=== PATIENT | female | born 1955 | race Caucasian/White ===

== ENCOUNTER 2018-09-07 10:22 | Emergency (ER) | payer OTHER ==
--- NOTE | 2018-09-07 11:10 | ED ---
Back Pain - HPI Summary HPI Summary: This patient is a 62 year old female presenting to [facility] accompanied by her son with a CC of intermittent right sided lower back pain that began last week. She rates the pain sharp 10/10 in severity and states it radiates down the front of her leg and in to her hahn. She saw her PCP on 09-05-18 for this and was given a muscle relaxer but it began making her feel ill because it was interacting with her Parkinsons medications. When she took the flexeril it caused her to vomit. She has had had kidney stones in the past but states it does not feel similar to prior stones. She denies trauma. She denies fever, chills, CP, SOB, and any incontinence. - History of Current Complaint Chief Complaint: EDBackInjurySpin Stated Complaint: PAIN IN RIGHT LEG Time Seen by Provider: 09/07/18 10:44 Hx Obtained From: Patient Onset/Duration: Lasting Weeks, Still Present Onset/Duration: Started Weeks Ago, Still Present Timing: Constant Back Pain Location: Radiates To Severity Initially: Severe Severity Currently: Severe Pain Intensity: 10 Pain Scale Used: 0-10 Numeric Associated Signs And Symptoms: Positive: Negative - chills. Negative: Fever, Bladder Incontinence, Bowel Incontinence - Allergies/Home Medications Allergies/Adverse Reactions: Allergies Allergy/AdvReac Type Severity Reaction Status Date / Time No Known Allergies Allergy Verified 09/07/18 10:34 PMH/Surg Hx/FS Hx/Imm Hx Endocrine/Hematology History: Denies: Hx Bone Marrow Disease, Hx Diabetes Cardiovascular History: Reports: Hx Hypertension Sensory History: Reports: Hx Contacts or Glasses Opthamlomology History: Reports: Hx Contacts or Glasses Neurological History: Reports: Other Neuro Impairments/Disorders - Parkinson's Disease - Cancer History Cancer Type, 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 Hx Chemotherapy: No Hx Radiation Therapy: No - Surgical History Surgery Procedure, Year, and Place: skin cancer face Infectious Disease History: No Infectious Disease History: Denies: Hx Clostridium Difficile, Hx Hepatitis, Hx Human Immunodeficiency Virus (HIV), Hx of Known/Suspected MRSA, Hx Shingles, Hx Tuberculosis, Hx Known/ Suspected VRE, Hx Known/Suspected VRSA, History Other Infectious Disease, Traveled Outside the [place] in Last 30 Days - Family History Known Family History: Positive: Other - Breast cancer, Non-Contributory - Social History Alcohol Use: Rare Substance Use Type: Reports: None Hx Tobacco Use: No Smoking Status (MU): Never Smoked Tobacco Review of Systems Negative: Fever, Chills Negative: Chest Pain Negative: Shortness Of Breath Gastrointestinal: Negative - incontinence. Positive: Vomiting - due to medications Genitourinary: Negative - incontinence. Musculoskeletal: Other - right sided lower back pain All Other Systems Reviewed And Are Negative: Yes Physical Exam - Summary Physical Exam Summary: GENERAL: Patient is a well-developed and nourished F who is lying comfortable in the stretcher. Patient is not in any acute respiratory distress. HEAD AND FACE: Normocephalic EYES: PERRLA, EOMI x 2. EARS: Hearing grossly intact. MOUTH: Oropharynx within normal limits. NECK: Supple, trachea is midline, no adenopathy, no JVD, no carotid bruit. CHEST: Symmetric, no tenderness at palpation LUNGS: Clear to auscultation bilaterally. No wheezing or crackles. CVS: Regular rate and rhythm, S1 and S2 present, no murmurs or gallops appreciated. ABDOMEN: Soft, non-tender. Bowel sounds are normal. No abdominal abnormal pulsations. Back: the pain is not reproducible with palpation EXTREMITIES: Full ROM in all major joints, no edema, no cyanosis or clubbing. Straight leg raise on the right is negative NEURO: Alert and oriented x 3. No acute neurological deficits. Speech is normal and follows commands. SKIN: Dry and warm Triage Information Reviewed: Yes Vital Signs On Initial Exam: Initial Vitals Temp Pulse Resp BP Pulse Ox 98.6 F 73 16 160/95 96 09/07/18 10:29 09/07/18 10:29 09/07/18 10:29 09/07/18 10:29 09/07/18 10:29 Vital Signs Reviewed: Yes Diagnostics - Vital Signs Vital Signs Temp Pulse Resp BP Pulse Ox 09/07/18 10:29 98.6 F 73 16 160/95 96 - Laboratory Lab Statement: Any lab studies that have been ordered have been reviewed, and results considered in the medical decision making process. - CT CT ABD/Pelvis CT Interpretation Completed By: Radiologist Summary of CT Findings: 1. CHOLELITHIASIS. 2. EXTENSIVE DIVERTICULOSIS. 3. SCOLIOSIS. 4. OSTEOPENIA. 5. DEGENERATIVE DISC DISEASE AND OSTEOARTHRITIS DESCRIBED ABOVE. ED physician has reviewed this report. CT L spine CT Interpretation Completed By: Radiologist Summary of CT Findings: 1. CHOLELITHIASIS. 2. EXTENSIVE DIVERTICULOSIS. 3. SCOLIOSIS. 4. OSTEOPENIA. 5. DEGENERATIVE DISC DISEASE AND OSTEOARTHRITIS DESCRIBED ABOVE. ED physician has reviewed this report. Back Pain Course/Dx - Course Assessment/Plan: This patient is a 62 year old female presenting to [facility] accompanied by her son with a CC of intermittent right sided lower back pain that began last week. CT L Spine reveals, per radiology, 1. CHOLELITHIASIS. 2. EXTENSIVE DIVERTICULOSIS. 3. SCOLIOSIS. 4. OSTEOPENIA. 5. DEGENERATIVE DISC DISEASE AND OSTEOARTHRITIS DESCRIBED ABOVE. CT ABD/Pelvis reveals, per radiology, 1. CHOLELITHIASIS. 2. EXTENSIVE DIVERTICULOSIS. 3. SCOLIOSIS. 4. OSTEOPENIA. 5. DEGENERATIVE DISC DISEASE AND OSTEOARTHRITIS DESCRIBED ABOVE. The patient was given decadron and toradol, pt improved with these medications. UA was negative for UTI. I discussed results with patient and she reports feeling better. She is hemodynamically stable and safe for discharge. Strict return precautions given and she will otherwise follow up with her PCP. Pt was also given an ortho f/u. - Diagnoses Provider Diagnoses: DDD (degenerative disc disease), Lumbar radiculopathy Discharge - Sign-Out/Discharge Documenting (check all that apply): Patient Departure - d/c Patient Received Moderate/Deep Sedation with Procedure: No - Discharge Plan Condition: Stable Disposition: HOME Prescriptions: Diazepam TAB(*) [Valium TAB(*)] 2.5 mg PO Q6H PRN #10 tab MDD 4 doses PRN Reason: Spasms Ibuprofen 600 mg PO TID #24 tablet Patient Education Materials: Lumbar Radiculopathy (ED) Referrals: Julia Shen NP [Primary Care Provider] - Dayton Tavarez MD [Medical Doctor] - 2 Weeks Additional Instructions: Follow up with your primary care physician in 1-3 days. RETURN TO THE EMERGENCY DEPARTMENT FOR CHANGING OR WORSENING SYMPTOMS. - Billing Disposition and Condition Condition: STABLE Disposition: Home - Attestation Statements Document Initiated by Scribe: Yes Documenting Scribe: Emerson Vu Provider For Whom Scribe is Documenting (Include Credential): Dionte Mullins MD Scribe Attestation: Emerson Basurto , scribed for Dionte Mullins MD on 09/08/18 at 1756. Scribe Documentation Reviewed: Yes Provider Attestation: The documentation as recorded by the scribe, Emerson Vu accurately reflects the service I personally performed and the decisions made by me, Dionte Mullins MD Status of Scribe Document: Viewed
--- OUTSIDE RECORDS SUMMARY | 2018-09-07 11:24 | XMS REPORT | Continuity of Care Document ---
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 [place] [id number] Effective: 2017 Policy Number: Juan West [id number] Medicaid PayID: [id number] [address] [place] [id number] Advance Directives Description No Information Available Problems Date Description Provider Status Onset: 07/26/2014 Secondary parkinsonism ZHANG Chavira Active Onset: 07/26/2014 Essential hypertension ZHANG Chavira Active Family History Date Family Member(s) Problem(s) Comments : (age Father due to Colon 62 Years) Cancer : (age Mother due to 92 Years) Cancer, Pancreatic : (age First Brother due to 60 Years) Cancer, Liver : (age Second Brother due to complications 50 Years) Diabetes Third Brother Cancer, Prostate First Sister 70 age 78 with breast/bone cancer First Sister Cancer, Bone First Sister Cancer, Breast Second Sister Asthma Second Sister 71 Second Sister due to () Septicemia Paternal Grandfather unknown Paternal Grandmother unknown Maternal Grandfather unkonwn Maternal Grandmother unknown Social History Type Date Description Comments Sex Unknown Marital Status Lives With patient lives alone Diet Healthy, Well Balanced 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 Exercise Type/Frequency Bicycling Uses bike at home 30 min a day Allergies, Adverse Reactions, Alerts Description No Known Drug Allergies Medications Medication Date Status Form Strength Qnty SIG Indications Ordering Provider Atenolol 06/02/ Active Tablets 25mg 90tabs take one I10 Sil 2008 tablet by Gordy [employer]IMMER mouth every day Lindsay-C 05/31/ Active Tablets 500mg 1 PO qd Anusha 2007 Arnulfo Miranda, F.N.P.C. Sinemet / Active Tablets 25-100mg 1 and 07/23 Unknown 0000 po tid Metoprolol 02/18/ Hx Tablets ER 25mg 30tabs 1 by mouth Chika Succinate ER 2017 - 24HR every day Frankie 05/27/ for [employer] 2018 shortage of atenolol Hydroxyzine HCL 08/08/ Hx Tablets 10mg 45tabs 1 -3 tablet Chika 2017 - by mouth 4 Frankie, 05/27/ times a day [employer] 2018 as needed for anxiety Cipro 09/19/ Hx Tablets 500mg 10tabs one twice a N39.0 Chika 2015 - day x 5 Frankie, 08/08/ days [employer]-C 2017 [facility] 06/27/ Hx cbc,cmp,TSH Shawclementine 2012 - , lipids Yue Mix, 07/26/ panel [employer] 2015 Citalopram 03/27/ Hx Tablets 10mg 30tabs / po 781.8 Shawnti Hydrobromide 2010 - daily for Yue Mix, 07/26/ adjustment [employer]-C 2014 reaction Coenzyme Q10 06/21/ Hx Capsules 50mg 1 po qd Anusha 2008 - . 05/27/ Ruben, 2017 F.N.P.C. Bittinger-3 06/21/ Hx Capsules 1000mg 1 po qd Anusha 2008 - . 03/27/ Ruben, 2010 F.N.P.C. Multivitamins 06/21/ Hx Tablets 1 po qd Anusha 2008 - A. 05/27/ Ruben, 2017 F.N.P.C. Paxil 04/04/ Hx Tablets 20mg 30tabs 1 po qd 300.00 Shawclementine 2008 - R. Dominguez, 06/19/ [employer] 2010 Zoloft 02/14/ Hx Tablets 50mg 30tabs 1 po qd 300.02 Anusha 2008 - A. 04/04/ Ruben, 2008 F.N.P.C. 300.00 Meclizine 01/13/2009 - Hx Tablets 12.5mg 30tabs 1-2 tabs up 386.10 Anusha A. HCL 07/03/2010 to tid for britt Miranda F.N.P.C. Nasonex 12/29/2008 - Hx Suspension 50mcg/Act 1units two sprays in 381.81 Anusha A. 07/07/2013 each nares Ruben, once daily F.N.P.C. Zoloft 12/20/2008 - Hx Tablets 25mg 30tabs 1 po daily 300.02 Shawnti R. 02/14/2009 for Dominguez, adjustment [employer] reaction 300.00 Medicaly Able To Work 06/16/2007 - Hx no evidence V70.0 Moeclementine R. 09/26/2007 of infectious Storm, disease or [employer] disability that would affect work duties Multi-Vit 05/13/2006 - Hx Tablets 0ta 1 PO qd Anusha A. 03/27/2011 bs Ruben F.N.P.C. Vitamin C 05/13/2006 - Hx Capsules 1,000 po daily Anusha A. 05/31/2008 mg Ruben F.N.P.C. Fish Oil 05/13/2006 - Hx 1 PO qd Anusha A. 03/27/2011 Ruben F.N.P.C. Lo/Ovral 28 Day 02/28/2005 - Hx Tablets 0.03m 2PK use 2 tabs qd Chika 05/13/2006 g;0.3 S Soboroff, mg M.D. Medroxyprogesterone 02/05/2005 - Hx Tablets 10mg 30t use 1 tab q2h Chika 05/13/2006 abs until maik Winkler M.D. stops, then take 1 tab qd x 14 days Amoxicillin 10/28/2003 - Hx Capsules 875mg 28c 1 po bid 478.9 Anusha A. 11/02/2003 aps Jackie MirandaN.P.CYing Glucosamine-Chondroitin - Hx Capsules 500-4 Two In The Am Unknown 07/26/2014 00 Medications Administered in Office Medication Date Status Form Strength Qnty SIG Indications Ordering Provider TB,Intradermal Administered Injection Chika (PPD, [place]) 017 Frankie, [employer] TB,Intradermal Administered Injection Chika (PPD, [place]) 016 Frankie, [employer]ER-C TB,Intradermal Administered Injection Chika (PPD, [place]) 015 Rfankie, [employer]ADER-C TB,Intradermal Administered Injection Shawnti R. (PPD, [place]) 013 Storm, [employer]ER-C TB,Intradermal Administered Injection Shawnti R. (PPD, [place]) 012 Storm, [employer]ER-C TB,Intradermal Administered Injection Shawnti R. (PPD, [place]) 011 Storm, [employer]ER-C TB,Intradermal Administered Injection Juliana (PPD, [place]) 010 Saavedra, [employer] TRIMMER TB,Intradermal Administered Injection Anusha A. (PPD, [place]) 009 Ruben, F.N.P.C. TB,Intradermal Administered Injection Anusha A. (PPD, [place]) 008 Ruben, F.N.P.C. TB,Intradermal Administered Injection Vitaly Lewis, (PPD, [place]) 007 Brigitte.D. TB,Intradermal Administered Injection Anusha A. (PPD, [place]) 006 Ruben, F.N.P.C. TB,Intradermal Administered Injection Chika (PPD, [place]) 004 Marleen Winkler Immunizations CPT Code Status Date Vaccine Lot # [id number] Given 07/26/2014 Tdap (Adacel) [id number] Vital Signs Date Vital Result Comment 08/11/2018 8:00am Weight 154.00 lb Weight 69.854 kg BP Systolic 130 mmHg BP Diastolic 74 mmHg Heart Rate 80 /min Body Temperature 98.3 F Respiratory Rate 16 /min Height 64 inches 5'4" BMI (Body Mass Index) 26.4 kg/m2 O2 % BldC Oximetry 97 % 05/27/2018 3:32pm Weight 159.00 lb Weight 72.122 kg BP Systolic 130 mmHg BP Diastolic 90 mmHg Heart Rate 81 /min Body Temperature 98.9 F Respiratory Rate 16 /min O2 % BldC Oximetry 96 % 09/23/2017 8:02am Weight 150.00 lb Weight 68.040 kg BP Systolic 140 mmHg BP Diastolic 78 mmHg Heart Rate 72 /min Body Temperature 98.0 F Respiratory Rate 16 /min O2 % BldC Oximetry 98 % 08/08/2017 8:06am Weight 150.00 lb Weight 68.040 kg BP Systolic 142 mmHg BP Diastolic 88 mmHg Heart Rate 72 /min Body Temperature 98.0 F Respiratory Rate 16 /min Height 64 inches 5'4" BMI (Body Mass Index) 25.7 kg/m2 O2 % BldC Oximetry 98 % 04/02/2017 9:09am Weight 154.00 lb Weight 69.854 kg BP Systolic 124 mmHg BP Diastolic 80 mmHg BP Systolic Recheck 142 mmHg BP Diastolic Recheck 88 mmHg Heart Rate 72 /min Body Temperature 98.7 F Respiratory Rate 16 /min Height 63.5 inches 5'3.50" BMI (Body Mass Index) 26.8 kg/m2 08/08/2016 8:09am Weight 152.00 lb Weight 68.947 kg BP Systolic 147 mmHg BP Diastolic 100 mmHg BP Systolic Recheck 142 mmHg BP Diastolic Recheck 92 mmHg Heart Rate 64 /min 09/20/2015 9:35am Weight 156.00 lb Weight 70.762 kg BP Systolic 176 mmHg BP Diastolic 104 mmHg Heart Rate 84 /min Body Temperature 100.0 F 08/03/2015 8:21am Weight 155.00 lb Weight 70.308 kg BP Systolic 150 mmHg BP Diastolic 90 mmHg Heart Rate 68 /min Height 63.5 inches 5'3.50" BMI (Body Mass Index) 27.0 kg/m2 08/17/2014 8:52am Weight 158.00 lb Weight 71.669 kg BP Systolic 162 mmHg BP Diastolic 84 mmHg Heart Rate 84 /min Height 64 inches 5'4" BMI (Body Mass Index) 27.1 kg/m2 07/26/2014 7:56am Weight 163.00 lb Weight 73.937 kg BP Systolic 148 mmHg BP Diastolic 100 mmHg Heart Rate 76 /min Height 64 inches 5'4" BMI (Body Mass Index) 28.0 kg/m2 07/07/2013 3:05pm Weight 147.00 lb Weight 66.679 kg BP Systolic 148 mmHg BP Diastolic 84 mmHg Heart Rate 80 /min Height 63.5 inches 5'3.50" BMI (Body Mass Index) 25.6 kg/m2 06/27/2012 1:19pm Weight 139.00 lb Weight 63.050 kg BP Systolic 130 mmHg BP Diastolic 100 mmHg Heart Rate 68 /min Height 63.5 inches 5'3.50" BMI (Body Mass Index) 24.2 kg/m2 06/19/2011 1:33pm Weight 152.00 lb Weight 68.947 kg BP Systolic 160 mmHg BP Diastolic 104 mmHg Heart Rate 82 /min Height 63.5 inches 5'3.50" BMI (Body Mass Index) 26.5 kg/m2 03/27/2011 3:10pm Weight 150.00 lb Weight 68.040 kg BP Systolic 150 mmHg BP Diastolic 100 mmHg Heart Rate 72 /min Body Temperature 99.5 F 07/03/2010 8:11am Weight 156.00 lb Weight 70.762 kg BP Systolic 168 mmHg BP Diastolic 120 mmHg Heart Rate 76 /min Height 64 inches 5'4" BMI (Body Mass Index) 26.8 kg/m2 06/21/2009 1:00pm Weight 141.00 lb Weight 63.958 kg BP Systolic 160 mmHg BP Diastolic 100 mmHg Heart Rate 72 /min Height 63.25 inches 5'3.25" BMI (Body Mass Index) 24.8 kg/m2 04/04/2009 2:27pm Weight 137.00 lb Weight 62.143 kg BP Systolic 144 mmHg BP Diastolic 102 mmHg Heart Rate 76 /min 02/14/2009 10:20am Weight 134.00 lb Weight 60.782 kg BP Systolic 180 mmHg BP Diastolic 92 mmHg Heart Rate 68 /min 01/13/2009 10:29am Weight 134.00 lb Weight 60.782 kg BP Systolic 200 mmHg BP Diastolic 100 mmHg Heart Rate 80 /min Body Temperature 99.0 F 12/29/2008 11:36am Weight 132.00 lb Weight 59.875 kg BP Systolic 170 mmHg BP Diastolic 100 mmHg Heart Rate 80 /min 12/20/2008 2:34pm Weight 133.00 lb Weight 60.329 kg BP Systolic 178 mmHg BP Diastolic 118 mmHg Heart Rate 84 /min Body Temperature 97.9 F 10/22/2008 3:13pm Weight 136.00 lb Weight 61.690 kg BP Systolic 178 mmHg BP Diastolic 102 mmHg Heart Rate 76 /min 05/31/2008 8:04am Weight 137.00 lb Weight 62.143 kg BP Systolic 174 mmHg BP Diastolic 102 mmHg Heart Rate 88 /min Height 63.75 inches 5'3.75" BMI (Body Mass Index) 23.7 kg/m2 09/15/2007 11:32am Weight 148.00 lb Weight 67.133 kg BP Systolic 182 mmHg BP Diastolic 110 mmHg Heart Rate 70 /min Body Temperature 98.8 F Height 64 inches 5'4" BMI (Body Mass Index) 25.4 kg/m2 06/16/2007 8:00am Weight 152.00 lb Weight 68.947 kg BP Systolic 186 mmHg BP Diastolic 94 mmHg Heart Rate 76 /min Height 64 inches 5'4" BMI (Body Mass Index) 26.1 kg/m2 05/13/2006 8:20am Weight 156.00 lb Weight 70.762 kg BP Systolic 160 mmHg BP Diastolic 80 mmHg Height 64 inches 5'4" BMI (Body Mass Index) 26.8 kg/m2 04/03/2005 3:25pm Weight 142.00 lb Weight 64.411 kg BP Systolic 170 mmHg BP Diastolic 90 mmHg Heart Rate 80 /min Body Temperature 99.6 F Height 64 inches 5'4" BMI (Body Mass Index) 24.4 kg/m2 03/21/2005 10:53am Weight 140.00 lb Weight 63.504 kg BP Systolic 138 mmHg BP Diastolic 80 mmHg Body Temperature 98.0 F Height 64 inches 5'4" BMI (Body Mass Index) 24.0 kg/m2 03/14/2005 10:54am Weight 142.00 lb Weight 64.411 kg BP Systolic 120 mmHg BP Diastolic 80 mmHg Heart Rate 80 /min Height 64 inches 5'4" BMI (Body Mass Index) 24.4 kg/m2 02/28/2005 11:05am Weight 142.00 lb Weight 64.411 kg BP Systolic 140 mmHg BP Diastolic 86 mmHg Body Temperature 98.8 F Height 64 inches 5'4" BMI (Body Mass Index) 24.4 kg/m2 02/05/2005 11:46am Weight 142.00 lb Weight 64.411 kg BP Systolic 100 mmHg BP Diastolic 60 mmHg Heart Rate 80 /min Height 64 inches 5'4" BMI (Body Mass Index) 24.4 kg/m2 04/12/2004 8:23am Weight 144.00 lb Weight 65.318 kg BP Systolic 175 mmHg BP Diastolic 85 mmHg Heart Rate 69 /min Respiratory Rate 18 /min Height 64 inches 5'4" BMI (Body Mass Index) 24.7 kg/m2 10/28/2003 2:22pm Weight 145.00 lb Weight 65.772 kg BP Systolic 162 mmHg BP Diastolic 100 mmHg Body Temperature 97.9 F Respiratory Rate 18 /min 04/06/2003 2:09pm Weight 143.00 lb Weight 64.865 kg BP Systolic 160 mmHg BP Diastolic 112 mmHg 12/10/2001 11:17am Weight 137.00 lb BP Systolic 130 mmHg BP Diastolic 80 mmHg Heart Rate 64 /min Body Temperature 99.3 F 11/20/2001 3:46pm Weight 137.00 lb BP Systolic 130 mmHg BP Diastolic 74 mmHg Heart Rate 80 /min Respiratory Rate 18 /min Results Test Date Facility Test Result H/L Range Note Laboratory test 09/23/2017 [facility] Cytology SEE RESULT 1 finding [phone] BELOW Laboratory test 09/09/2017 [facility] Hemoglobin A1c 5.3 % N 4.0-5.6 2 finding [phone] (Glyco HGB) Hepatitis C Antibody Nonreactive Nonreactive 3 CBC Auto Diff 09/09/2017 [facility] White Blood 5.8 10^3/uL N 3.5-10.8 [phone] Count Red Blood Count 4.42 10^6/uL N 4.0-5.4 Hemoglobin 13.6 g/dL N 12.0-16.0 Hematocrit 41 % N 35-47 Mean Corpuscular Volume 92 fL N 80-97 Mean Corpuscular Hemoglobin 31 pg N 27-31 Mean Corpuscular HGB Conc 34 g/dL N 31-36 Red Cell Distribution Width 13 % N 10.5-15 Platelet Count 301 10^3/uL N 150-450 Mean Platelet Volume 8 um3 N 7.4-10.4 Abs Neutrophils 3.7 10^3/uL N 1.5-7.7 Abs Lymphocytes 1.4 10^3/uL N 1.0-4.8 Abs Monocytes 0.5 10^3/uL N 0-0.8 Abs Eosinophils 0.2 10^3/uL N 0-0.6 Abs Basophils 0.1 10^3/uL N 0-0.2 Abs Nucleated RBC 0 10^3/uL Granulocyte % 64.2 % N 38-83 Lymphocyte % 23.8 % Low 25-47 Monocyte % 8.2 % N 1-9 Eosinophil % 2.7 % N 0-6 Basophil % 1.1 % N 0-2 Nucleated Red Blood Cells % 0.1 Comp Metabolic Panel 09/09/2017 [facility] Sodium 141 mmol/L N 133-145 [phone] Potassium 4.5 mmol/L N 3.5-5.0 Chloride 106 mmol/L N 101-111 Co2 Carbon Dioxide 30 mmol/L N 22-32 Anion Gap 5 mmol/L N 2-11 Glucose 97 mg/dL N 70-100 Blood Urea Nitrogen 13 mg/dL N 6-24 Creatinine 0.67 mg/dL N 0.51-0.95 BUN/Creatinine Ratio 19.4 N 8-20 Calcium 9.2 mg/dL N 8.6-10.3 Total Protein 6.4 g/dL N 6.4-8.9 Albumin 3.7 g/dL N 3.2-5.2 Globulin 2.7 g/dL N 2-4 Albumin/Globulin Ratio 1.4 N 1-3 Total Bilirubin 0.40 mg/dL N 0.2-1.0 Alkaline Phosphatase 66 U/L N 34-104 Alt 3 U/L Low 7-52 Ast 11 U/L Low 13-39 Egfr Non- 88.9 >60 Egfr 114.3 >60 4 Lipid Profile 09/09/2017 [facility] Triglycerides 75 mg/dL 5 (Trig/Chol/HDL) [phone] Cholesterol 157 mg/dL 6 HDL Cholesterol 53.4 mg/dL 7 LDL Cholesterol 89 mg/dL 8 Comp Metabolic Panel 03/12/2016 [facility] Sodium 140 mmol/L N 133-145 [phone] Potassium 3.8 mmol/L N 3.5-5.0 Chloride 105 mmol/L N 101-111 Co2 Carbon Dioxide 26 mmol/L N 22-32 Anion Gap 9 mmol/L N 2-11 Glucose 114 mg/dL High 70-100 Blood Urea Nitrogen 12 mg/dL N 6-24 Creatinine 0.70 mg/dL N 0.51-0.95 BUN/Creatinine Ratio 17.1 N 8-20 Calcium 9.3 mg/dL N 8.6-10.3 Total Protein 7.0 g/dL N 6.4-8.9 Albumin 4.0 g/dL N 3.2-5.2 Globulin 3.0 g/dL N 2-4 Albumin/Globulin Ratio 1.3 N 1-3 Total Bilirubin 0.30 mg/dL N 0.2-1.0 Alkaline Phosphatase 79 U/L N 34-104 Alt 10 U/L N 7-52 Ast 15 U/L N 13-39 Egfr Non- 84.8 N >60 Egfr 109.0 N >60 9 Laboratory test 03/12/2016 [facility] Magnesium 1.9 mg/dL N 1.9-2.7 finding [phone] Troponin-I (TnI) 0.00 ng/mL N <0.03 10 TSH (Thyroid Stimulating Horm) 1.44 mcIU/mL N 0.34-5.60 C Reactive Protein 1.17 mg/L N < 5.00 11 Inr/Protime 03/12/2016 [facility] Inr 0.92 N 0.89- 1.11 [phone] Laboratory test 03/12/2016 [facility] Partial 28.9 seconds N 26.0-36.3 finding [phone] Thrombo Time PTT Urinalysis 03/12/2016 [facility] Urine Color Colorless N Profile [phone] Urine Appearance Clear N Urine Specific Dell 1.002 Low 1.010-1.030 Urine pH 7.0 N 5-9 Urine Urobilinogen Negative N Negative Urine Ketones Negative N Negative Urine Protein Negative N Negative Urine Leukocytes Negative N Negative Urine Blood Negative N Negative Urine Nitrite Negative N Negative Urine Bilirubin Negative N Negative Urine Glucose Negative N Negative Laboratory test 09/20/2015 [facility] Urine Culture And SEE RESULT 12 finding [phone] Sensitivities BELOW Urine DIP 09/20/2015 In House Lab Leukocytes ++ Neg (607)- - Urine Nitrites neg Neg Urobilinogen norm Norm Total Protein, Urine trace Neg Urine pH 5 5-6 Urine Blood 250 High Neg Specific Dell 1.02 1.01-1.02 Urine Ketones neg Neg Urine Bilirubin neg Neg Urine Glucose neg Norm CBC Auto Diff 08/03/2015 [facility] White Blood 6.2 10^3/uL N 3.5-10.8 [phone] Count Red Blood Count 4.70 10^6/uL N 4.0-5.4 Hemoglobin 14.3 g/dL N 12.0-16.0 Hematocrit 44 % N 35-47 Mean Corpuscular Volume 93 fL N 80-97 Mean Corpuscular Hemoglobin 30 pg N 27-31 Mean Corpuscular HGB Conc 33 g/dL N 31-36 Red Cell Distribution Width 13 % N 10.5-15 Platelet Count 319 10^3/uL N 150-450 Mean Platelet Volume 8 um3 N 7.4-10.4 Abs Neutrophils 3.5 10^3/uL N 1.5-7.7 Abs Lymphocytes 1.7 10^3/uL N 1.0-4.8 Abs Monocytes 0.6 10^3/uL N 0-0.8 Abs Eosinophils 0.3 10^3/uL N 0-0.6 Abs Basophils 0.1 10^3/uL N 0-0.2 Abs Nucleated RBC 0 10^3/uL N Granulocyte % 56.6 % N 38-83 Lymphocyte % 27.6 % N 25-47 Monocyte % 10.2 % High 1-9 Eosinophil % 4.6 % N 0-6 Basophil % 1.0 % N 0-2 Nucleated Red Blood Cells % 0 N Comp Metabolic Panel 08/03/2015 [facility] Sodium 140 mmol/L N 133-145 [phone] Potassium 4.0 mmol/L N 3.5-5.0 Chloride 106 mmol/L N 101-111 Co2 Carbon Dioxide 27 mmol/L N 22-32 Anion Gap 7 mmol/L N 2-11 Glucose 95 mg/dL N 70-100 Blood Urea Nitrogen 17 mg/dL N 6-24 Creatinine 0.66 mg/dL N 0.51-0.95 BUN/Creatinine Ratio 25.8 High 8-20 Calcium 9.5 mg/dL N 8.6-10.3 Total Protein 6.9 g/dL N 6.4-8.9 Albumin 4.3 g/dL N 3.2-5.2 Globulin 2.6 g/dL N 2-4 Albumin/Globulin Ratio 1.7 N 1-3 Total Bilirubin 0.30 mg/dL N 0.2-1.0 Alkaline Phosphatase 78 U/L N 34-104 Alt 7 U/L N 7-52 Ast 16 U/L N 13-39 Egfr Non- 91.0 N >60 Egfr 117.1 N >60 13 Lipid Profile 08/03/2015 [facility] Triglycerides 78 mg/dL N 14 (Trig/Chol/HDL) [phone] Cholesterol 155 mg/dL N 15 HDL Cholesterol 58.3 mg/dL N 16 LDL Cholesterol 81 mg/dL N 17 Urine DIP 08/03/2015 In House Lab Leukocytes neg Neg (607)- - Urine Nitrites neg Neg Urobilinogen norm Norm Total Protein, Urine + Neg Urine pH 5.0 5-6 Urine Blood neg Neg Specific Dell 1.025 High 1.01-1.02 Urine Ketones neg Neg Urine Bilirubin neg Neg Urine Glucose norm Norm Laboratory test 08/17/2014 [facility] Cytology RUN DATE: 18 [phone] 08/18/ <SEE NOTE> HPV Rna W/ Reflex Genotype Negative N Negative 19 CBC Auto Diff 08/17/2014 [facility] White Blood 7.0 10^3/uL N 4.8-10.8 [phone] Count Red Blood Count 4.67 10^6/uL N 4.0-5.4 Hemoglobin 14.5 g/dL N 12.0-16.0 Hematocrit 43 % N 35-47 Mean Corpuscular Volume 91 fL N 80-97 Mean Corpuscular Hemoglobin 31 pg N 27-31 Mean Corpuscular HGB Conc 34 g/dL N 31-36 Red Cell Distribution Width 12 % N 10.5-15 Platelet Count 291 10^3/uL N 150-450 Mean Platelet Volume 8 um3 N 7.4-10.4 Abs Neutrophils 5.0 10^3/uL N 1.5-7.7 Abs Lymphocytes 1.4 10^3/uL N 1.0-4.8 Abs Monocytes 0.4 10^3/uL N 0-0.8 Abs Eosinophils 0.1 10^3/uL N 0-0.6 Abs Basophils 0 10^3/uL N 0-0.2 Abs Nucleated RBC 0 10^3/uL N Granulocyte % 71.8 % N 38-83 Lymphocyte % 20.4 % Low 25-47 Monocyte % 6.2 % N 1-9 Eosinophil % 1.0 % N 0-6 Basophil % 0.6 % N 0-2 Nucleated Red Blood Cells % 0.1 N Comp Metabolic Panel 08/17/2014 [facility] Sodium 140 mmol/L N 133-145 [phone] Potassium 3.5 mmol/L N 3.5-5.0 Chloride 103 mmol/L N 101-111 Co2 Carbon Dioxide 28 mmol/L N 22-32 Anion Gap 9 mmol/L N 2-11 Glucose 99 mg/dL N 70-100 Blood Urea Nitrogen 10 mg/dL N 6-24 Creatinine 0.69 mg/dL N 0.51-0.95 BUN/Creatinine Ratio 14.5 N 8-20 Calcium 9.3 mg/dL N 8.6-10.3 Total Protein 7.0 g/dL N 6.4-8.9 Albumin 4.3 g/dL N 3.2-5.2 Globulin 2.7 g/dL N 2-4 Albumin/Globulin Ratio 1.6 N 1-3 Total Bilirubin 0.40 mg/dL N 0.2-1.0 Alkaline Phosphatase 80 U/L N 34-104 Alt 14 U/L N 7-52 Ast 13 U/L N 13-39 Egfr Non- 86.8 N >60 Egfr 111.6 N >60 20 Lipid Profile 08/17/2014 [facility] Triglycerides 80 mg/dL N 21 (Trig/Chol/HDL) [phone] Cholesterol 166 mg/dL N 22 HDL Cholesterol 53.3 mg/dL N 23 LDL Cholesterol 97 mg/dL N 24 Urine DIP 08/17/2014 In House Lab Specific Dell 1.020 1.01-1.02 (607)- - Urine pH 5 5-6 Leukocytes NEG Neg Urine Nitrites NEG Neg Total Protein, Urine NEG Neg Urine Glucose NORM Norm Urine Ketones ++ Neg Urobilinogen NORM Norm Urine Bilirubin NEG Neg Urine Blood NEG Neg Urine DIP 06/27/2012 In [place] [facility] Leukocytes NEG Neg (607)- - Urine Nitrites NEG Neg Urine pH 5 5-6 Total Protein, Urine NEG Neg Urine Glucose NORM Norm Urine Ketones NEG Neg Urobilinogen NORM Norm Urine Bilirubin NEG Neg Urine Blood NEG Neg Specific Dell N/A Low 1.01-1.02 Laboratory test 08/22/2011 [facility] Rubella Screen IMMUNE Immune finding [phone] Laboratory test 06/19/2011 [facility] Cytology ------ ----- 25 finding [phone] ----- <SEE NOTE> Urine DIP 07/03/2010 In [place] [facility] Leukocytes NEG Neg (607)- - Urine Nitrites NEG Neg Urine pH 5 5-6 Total Protein, Urine NEG Neg Urine Glucose NORM Norm Urine Ketones NEG Neg Urobilinogen NORM Norm Urine Bilirubin NEG Neg Urine Blood ABOUT 50 Neg Specific Dell N/A Low 1.01-1.02 Urine DIP 06/21/2009 In [place] [facility] Leukocytes NEG Neg (607)- - Urine Nitrites NEG Neg Urine pH 5 5-6 Total Protein, Urine TRACE Neg Urine Glucose NORM Norm Urine Ketones NEG Neg Urobilinogen NORM Norm Urine Bilirubin NEG Neg Urine Blood NEG Neg Specific Dell N/A Low 1.01-1.02 Urine DIP 05/31/2008 In [place] [facility] Leukocytes neg Neg (607)- - Urine Nitrites neg Neg Urine pH 5 5-6 Total Protein, Urine neg Neg Urine Glucose norm Norm Urine Ketones neg Neg Urobilinogen norm Norm Urine Bilirubin neg Neg Urine Blood neg Neg Specific Dell n/a Low 1.01-1.02 Laboratory test 05/31/2008 [facility] Cytology ------ 26 finding [phone] <SEE NOTE> Urine DIP 09/24/2007 In [place] [facility] Leukocytes + Neg (607)- - Urine Nitrites NEG Neg Urine pH 5 5-6 Total Protein, Urine NEG Neg Urine Glucose NORM Norm Urine Ketones ++ Neg Urobilinogen NORM Norm Urine Bilirubin NEG Neg Urine Blood NEG Neg Specific Dell N/A Low 1.01-1.02 Urine Culture And 09/16/2007 [facility] Urine Culture NG 27 Sensitivites [phone] Sensitivi Urine DIP 09/15/2007 In House Lab Leukocytes neg Neg (607)- - Urine Nitrites neg Neg Urine pH 5 5-6 Total Protein, Urine neg Neg Urine Glucose norm Norm Urine Ketones neg Neg Urobilinogen norm Norm Urine Bilirubin neg Neg Urine Blood about 250 Neg Specific Dell n/a Low 1.01-1.02 Laboratory test 05/13/2006 [facility] Cytology ------ 28 finding [phone] <SEE NOTE> Laboratory test 04/03/2005 [facility] Thin Layer Pap REC'D-SEE IMAGE finding [phone] W/Reflex To HPV For ASCUS Laboratory test 03/21/2005 [facility] ENDOMETRIAL BIOPSY finding (607)- - Report Laboratory test 03/21/2005 In [place] [facility] Hemoglobin 11.4 finding (607)- - Laboratory test 03/21/2005 [facility] Thin Layer Pap REC'D-UNSAT EVAL finding [phone] W/Reflex To HPV For ASCUS Laboratory test 02/28/2005 In [place] [facility] Hemoglobin 11.1 finding (607)- - Laboratory test 02/05/2005 In [place] [facility] Hemoglobin 12.5 finding (607)- - Laboratory test 04/06/2003 In [place] [facility] Hemoglobin 12.6 finding (607)- - Laboratory test 11/20/2001 In [place] [facility] Hemoglobin 11.9 finding (607)- - 1 SEE RESULT BELOW Name: REANNA WEST : [address]: Julia Shen NP Acct: [id number] Unit: [id number] AGE: 61 Location: [facility] [place] Re09/23/17 SEX: F Status: REG REF SPEC: [id number] BERNADETTE: 09/23/17 [facility] DR: Julia Shen SH[employer] FEATHER TRIMMER REQ: [id number] RECD: 09/23/17 STATUS: SOUT _ ORDERED: TP IMAGE ANAL, HPV/Thin Prep, HPV 16/18 GENE COMMENTS: [id number] Negative for Intraepithelial lesion or Malignancy A. Ectocervical/Endocervical Specimen Adequacy: Satisfactory of evaluation Transformation zone component cannot be definitely identified due to presence of atrophy or other hormonal changes Patient Information: HPV: High risk HPV RNA testing regardless of pap results. HPV 16/18 Genotype Reflex Actual Specimen Date: 09/23/17 LMP If Unknown: unknown Date of Last Specimen: 08/17/16 Date Time Test Result Flag (u) Normal Range 09/23/17 08 @ HPV RNA RFLX GE Negative Negative @ @ The high-risk HPV types detected by the assay include: 16, @ 18, 31, 33, 35, 39, 45, 51, 52, 56, 58, 59, 66, and 68. Signed (signature on file) CALOS Sharma(ASCP) 09/24 1300 This Pap test was evaluated with the assistance of the ThinPrep Test Imaging System. Due to cytologic findings at the track patrol microscope, comprehensive manual rescreening by a Boarding Kennel Or Cattery Operator may be required. The Pap Smear is a screening test designed to aid in the detection of premalignant and malignant conditions of the uterine cervix. It is not a diagnostic procedure and should not be used as the sole means of detecting cervical cancer. Both false- positive and false- negative reports do occur. Depending on your risk status, a Pap smear should be obtained and evaluated every 1-3 years. END OF REPORT DEPARTMENT OF PATHOLOGY, [address] [place] [address] Meng Alvares M.D. Director [facility] # [id number] 2 Therapeutic target for the treatment of diabetes mellitus patients is <7% HBA1C, and in selective patients <6.0%. Please refer to [place] [employer] diabetic care guidelines for further information. 3 FASTING [id number] 4 Because ethnic data is not always readily available, this report includes an eGFR for both -Americans and non- Americans. The National Kidney Disease Education Program (NKDEP) does not endorse the use of the MDRD equation for patients that are not between the ages of 18 and 70, are , have extremes of body size, muscle mass, or nutritional status, or are non- or non-. According to the National Kidney Foundation, irrespective of diagnosis, the stage of the disease is based on the level of kidney function: Stage Description GFR(mL/min/1.73 m(2)) 1 Kidney damage with normal or decreased GFR 90 2 Kidney damage with mild decrease in GFR 60-89 3 Moderate decrease in GFR 30-59 4 Severe decrease in GFR 15-29 5 Kidney failure <15 (or dialysis) 5 Desirable: <150 Borderline High: 150-199 High: 200-499 Very High: >500 6 Desirable: <200 Borderline High: 200-239 High: >239 7 Low: <40 Desirable: 40-60 High: >60 8 Desirable: <100 Near Optimal: 100-129 Borderline High: 130-159 High: 160-189 Very High: >189 9 Because ethnic data is not always readily available, this report includes an eGFR for both -Americans and non- Americans. The National Kidney Disease Education Program (NKDEP) does not endorse the use of the MDRD equation for patients that are not between the ages of 18 and 70, are , have extremes of body size, muscle mass, or nutritional status, or are non- or non-. According to the National Kidney Foundation, irrespective of diagnosis, the stage of the disease is based on the level of kidney function: Stage Description GFR(mL/min/1.73 m(2)) 1 Kidney damage with normal or decreased GFR 90 2 Kidney damage with mild decrease in GFR 60-89 3 Moderate decrease in GFR 30-59 4 Severe decrease in GFR 15-29 5 Kidney failure <15 (or dialysis) 10 Reference Range and Interpretation: TnI (ng/mL) Interpretation Less Than 0.03 ng/mL Not supportive of diagnosis of [place] 0.03 - 0.50 ng/mL Indeterminate: suggest serial studies if clinically indicated. Greater than 0.5 ng/mL Consistent with diagnosis of [place] 11 Acute inflammation: >10.00 12 SEE RESULT BELOW Name: REANNA WEST : [address]: Chika Leger NP Acct: [id number] Unit: [id number] AGE: 59 Location: [facility] [place] Re09/20/15 SEX: F Status: REG REF SPEC: [id number] BERNADETTE: 09/20/15-999 [facility] DR: Chika Leger NP REQ: [id number] RECD: 09/20/15 STATUS: COMP _ SOURCE: URINE SPDESC: ORDERED: Urine Culture Procedure Result Reported Site Urine Culture Final 09/22/15- 0802 ML Organism 1 ESCHERICHIA COLI [facility] Count >100,000 (Many) CFU/ML 1. ESCHERICHIA COLI [facility].I.[facility]. RX --------- ------ Ampicillin <=2 S Cefazolin <=4 S Cefepime <=1 S Ceftriaxone <=1 S Ciprofloxacin <=0.25 S Gentamicin <=1 S Levofloxacin <=0.12 S Meropenem <=0.25 S Nitrofurantoin <=16 S Tetracycline <=1 S Pipercillin/Tazobactam <=4 S Trimethoprim/Sulfamethoxazole <=20 S Amoxicillin/Clavulanic Acid <=2 S Aztreonam <=1 S Contact the Microbiology Department for any additional antibiotic reporting. * ML - [facility]) . END OF REPORT * ML=Testing performed at Main Lab DEPARTMENT OF PATHOLOGY, [address] [place] [address] Meng Alvares M.D. Director [facility] # [id number] 13 Because ethnic data is not always readily available, this report includes an eGFR for both -Americans and non- Americans. The National Kidney Disease Education Program (NKDEP) does not endorse the use of the MDRD equation for patients that are not between the ages of 18 and 70, are , have extremes of body size, muscle mass, or nutritional status, or are non- or non-. According to the National Kidney Foundation, irrespective of diagnosis, the stage of the disease is based on the level of kidney function: Stage Description GFR(mL/min/1.73 m(2)) 1 Kidney damage with normal or decreased GFR 90 2 Kidney damage with mild decrease in GFR 60-89 3 Moderate decrease in GFR 30-59 4 Severe decrease in GFR 15-29 5 Kidney failure <15 (or dialysis) 14 Desirable <150 Borderline high 150-199 High 200-499 Very High >500 15 Desirable <200 Borderline high 200-239 High >239 16 Low <40 Desirable: 40-60 High: >60 17 Desirable: <100 mg/dL Near Optimal: 100-129 mg/dL Borderline High: 130-159 mg/dL High: 160-189 mg/dL Very High: >189 mg/dL 18 RUN DATE: 08/18/14 [facility] LAB LIVE PAGE 1 RUN TIME: [address] [place] [id number] Specimen Inquiry Name: REANNA WEST : [address]: Chika Leger NP Acct: [id number] Unit: [id number] AGE: 58 Location: [facility] [place] Re08/17/14 SEX: F Status: REG REF SPEC: [id number] BERNADETTE: 08/17/[address]: Chika Leger NP REQ: [id number] RECD: 08/17/14-1255 STATUS: SOUT _ ORDERED: IMAGE ANALYSIS, HPV/Thin Prep, HPV 16/18 GENE FINAL DIAGNOSIS Negative for Intraepithelial lesion or Malignancy A. Ectocervical/Endocervical Specimen Adequacy: Satisfactory of evaluation Transformation zone component identified Patient Information: HPV: High risk HPV RNA testing regardless of pap results. HPV 16/18 Genotype for HPV pos Actual Specimen Date: 08/17/14 ?: N Post Menopausal?: Y Hysterectomy?: N Date Time Test Result Flag (u) Normal Range 08/17/14 0943 HPV RNA RFLX GE Negative Negative The high-risk HPV types detected by the assay include: 16, 18, 31, 33, 35, 39, 45, 51, 52, 56, 58, 59, 66, and 68. Signed (signature on file) CALOS Duff (ASCP) 08/18/14 1423 This Pap test was evaluated with the assistance of the [employer] Test Imaging System. Due to cytologic findings at the track patrol microscope, comprehensive manual rescreening by a Boarding Kennel Or Cattery Operator may be required. The Pap Smear is a screening test designed to aid in the detection of premalignant and malignant conditions of the uterine cervix. It is not a diagnostic procedure and should not be used as the sole means of detecting cervical cancer. Both false- positive and false- negative reports do occur. Depending on your risk status, a Pap smear should be obtained and evaluated every 1-3 years. END OF REPORT * ML=Testing performed at Main Lab DEPARTMENT OF PATHOLOGY, [address] [place] [address] Meng Alvares M.D. Director [facility] # [id number] 19 The high-risk HPV types detected by the assay include: 16, 18, 31, 33, 35, 39, 45, 51, 52, 56, 58, 59, 66, and 68. 20 Because ethnic data is not always readily available, this report includes an eGFR for both -Americans and non- Americans. The National Kidney Disease Education Program (NKDEP) does not endorse the use of the MDRD equation for patients that are not between the ages of 18 and 70, are , have extremes of body size, muscle mass, or nutritional status, or are non- or non-. According to the National Kidney Foundation, irrespective of diagnosis, the stage of the disease is based on the level of kidney function: Stage Description GFR(mL/min/1.73 m(2)) 1 Kidney damage with normal or decreased GFR 90 2 Kidney damage with mild decrease in GFR 60-89 3 Moderate decrease in GFR 30-59 4 Severe decrease in GFR 15-29 5 Kidney failure <15 (or dialysis) 21 Desirable <150 Borderline high 150-199 High 200-499 Very High >500 22 Desirable <200 Borderline high 200-239 High >239 23 Low <40 Desirable: 40-60 High: >60 24 Desirable <100 Near Optimal 100-129 Borderline high 130-159 High 160-189 Very High >189 25 ---- RUN DATE: 06/20/11 [facility] NMI LIVE PAGE 1 RUN TIME: 1234 Specimen Inquiry RUN USER: INTERFACE -- [id number] Status: REG REF Re06/19/11 Age/Sex: 55/F Unit#: [id number] Location: [facility].B. : [birth year] -- Specimen: [id number] SOUT Spec Date: 06/19/[address]: Noemy fam NP Spec Type: CYTOLOGY Received: 06/20/11-0832 Copies to: SOURCE ECTOCERVICAL/ENDOCERVICAL Thin Prep with Reflex HPV Test PATIENT INFORMATION ACTUAL COLLECTION DATE: 06/19/11 POST MENOPAUSAL? Yes DATE OF PRIOR SPECIMEN: 05/31/08 PATIENT HISTORY: Last menstrual period 5 yrs ago ADEQUACY OF SPECIMEN Satisfactory for evaluation * Transformation zone component identified * DIAGNOSIS NEGATIVE FOR INTRAEPITHELIAL LESION OR MALIGNANCY * This Pap test was evaluated with the assistance of the ThinPrep Pap Test Imaging System. The Pap Smear is a screening test designed to aid in the detection of premalign ant and malignant conditions of the uterine cervix. It is not a diagnostic procedure a nd should not be used as the sole means of detecting cervical cancer. Both false- positiv e and false-negative reports do occur. Depending on your risk status, a Pap smear christa uld be obtained and evaluated every one to three years. Initial evaluation performed by Yvon LYNNE(ASCP) 06/20/11 Final Interpretation electronically signed by: Yvon LYNNE CT(ASCP) 06/20/11 1234 -- -- DEPARTMENT OF PATHOLOGY, [address] [place] [address] [facility] Permit #[id number] Marleen Naik M.D. Aquatics Specialist noel -- 26 ---- RUN DATE: 06/01/08 [facility] NMI LIVE PAGE 1 RUN TIME: 1224 Specimen Inquiry RUN USER: INTERFACE -- Name: REANNA WEST Status: REG REF Re05/31/08 Age/Sex: 52/F Unit#: [id number] Location: [facility] : [birth year] -- Specimen: [id number] SOUDestinee Spec Date: 05/31/[address]: Anusha heard CNP Spec Type: CYTOLOGY Received: 06/01/08 Copies to: SOURCE ECTOCERVICAL/ENDOCERVICAL Thin Prep with Reflex HPV Test PATIENT INFORMATION ACTUAL COLLECTION DATE: 05/31/08 POST MENOPAUSAL? Yes ADEQUACY OF SPECIMEN Satisfactory for evaluation * Transformation zone component identified * DIAGNOSIS NEGATIVE FOR INTRAEPITHELIAL LESION OR MALIGNANCY * This Pap test was evaluated with the assistance of the ThinPrep Pap Test Imaging System. The Pap Smear is a screening test designed to aid in the detection of premalign ant and malignant conditions of the uterine cervix. It is not a diagnostic procedure a nd should not be used as the sole means of detecting cervical cancer. Both false- positive and false-negative reports do occur. Depending on your risk status, a Pap smear christa uld be obtained and evaluated every one to three years. Final Interpretation electronically signed by: Yvon LYNNE(ASCP) 06/01/08 1224 -- -- DEPARTMENT OF PATHOLOGY, [address] [place] [address] [facility] Permit #[id number] Meng Alvares M.D. Director of Laboratories -- 27 FINAL: NO GROWTH DAY 2 (<1,000 CFU/mL) 28 ---- RUN DATE: 05/16/06 [facility] NMI LIVE PAGE 1 RUN TIME: 5837 Specimen Inquiry RUN USER: INTERFACE [id number] REANNA WEST 50/F <REG REF 05/13> ([id number]) Anusha Syed NP. -- Specimen: [id number] MARLONDestinee Spec Date: 05/13/[address]: Anusha Miranda Spec Type: CYTOLOGY Received: 05/15/06-1106 Copies to: SOURCE ECTOCERVICAL/ENDOCERVICAL Thin Prep with Reflex HPV Test PATIENT INFORMATION ACTUAL COLLECTION DATE: 05/13/06 ? NO POST MENOPAUSAL? No HYSTERECTOMY? No PREVIOUS ABNORMAL PAP SMEARS No Last menstrual period - NOT GIVEN ADEQUACY OF SPECIMEN Satisfactory for evaluation * Transformation zone component identified * DIAGNOSIS NEGATIVE FOR INTRAEPITHELIAL LESION OR MALIGNANCY * The Pap Smear is a screening test designed to aid in the detection of premalign ant and malignant conditions of the uterine cervix. It is not a diagnostic procedure an d should not be used as the sole means of detecting cervical cancer. Both false-positive and false-negative reports do occur. Depending on your risk status, a Pap smear christa uld be obtained and evaluated every one to three years. Signed Electronically signed Yvon LYNNE(ASCP) 05/16/06 -- -- DEPARTMENT OF PATHOLOGY, [address] [place] [address] [facility] Permit #[id number] J Luis Acuna II, M.D. Director Marleen Naik irector -- Procedures Date Code Description Status 09/04/2016 [id number] Mammogram Completed 06/02/2008 28495 EKG, at Least 12 Leads w/Interpretation and Report Completed 03/21/2005 19224 Endometrial Biopsy Completed Encounters Type Date Location Provider Dx Diagnosis Office Visit 05/27/2018 Main Office Sil Kaminski NP I10 Essential ( primary) 3:30p hypertension Office Visit 09/23/2017 Main Office Julia Shen Z12.4 Encounter for 8:00a [employer]MER screening for malignant neoplasm of cervix Office Visit 08/08/2017 Main Office Julia Shen Z00.00 Encntr for general 8:00a [employer]MER adult medical exam w/o abnormal findings Z12.31 Encntr screen mammogram for malignant neoplasm of breast Z12.11 Encounter for screening for malignant neoplasm of colon I10 Essential (primary) hypertension Office Visit 04/02/2017 9:00a Main Office Chika Leger I10 Essential ( primary) [employer]AD[employer]-C hypertension Office Visit 08/08/2016 8:00a Main Office Zachery Chavira0 Essential ( primary) [employer]C hypertension Z11.1 Encounter for screening for respiratory tuberculosis Office Visit 09/20/2015 9:30a Main Office Chika Leger, N39.0 Urinary tract [employer]ER-C infection, site not specified Office Visit 08/03/2015 8:00a Main Office Chika Leger, Z00.00 Encntr for general [employer] LEADER-C adult medical exam w/o abnormal findings Z12.31 Encntr screen mammogram for malignant neoplasm of breast I10 Essential (primary) hypertension Z11.1 Encounter for screening for respiratory tuberculosis Office Visit 08/17/2014 9:00a Main Office Chika Leger, V72.31 Routine Data Migration Lead [employer]-C Examination 401.9 Hypertension Unspec 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 Office Visit 07/26/2014 8:00a Main Office Chika Leger V70.0 Examination General [employer]-C Medical Routine AT Health Care Facility 401.9 Hypertension Unspec 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 V76.10 Screening For Malignant Neoplasm Breast 173.91 Basal Cell Carcinoma Skin ,Site Unspecified V06.1 Aapuxoyoca-Krlqfmg-Xokugduq Combined (DTaP) V74.1 Screening Examination Pulmonary Tuberculosis Office Visit 07/07/2013 3:00p Main Office Noemy Turner V70.0 Examination General Storm, [employer]ER-C Medical Routine AT Health Care Facility Office Visit 06/27/2012 1:30p Main Office Noemy Turner V70.0 Examination General Storm, [employer]-C Medical Routine AT Health Care Facility 333.1 Tremor Essential & Other Forms V74.1 Screening Examination Pulmonary Tuberculosis Office Visit 06/19/2011 1:30p Main Office Noemy Turner V70.0 Examination General Storm, [employer]ER-C Medical Routine AT Health Care Facility 300.02 Anxiety Disorder Generalized 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 Unspec 401.9 Hypertension Unspec Office Visit 02/14/2009 10:15a Main Office Anusha AYing 401.9 Hypertension Unspec Ruben, F.N.P.C. 300.00 Anxiety State Unspec Office Visit 01/13/2009 10:30a Main Office Anusha A. 386.10 Vertigo Peripheral Ruben, F.N.P.C. Unspec 401.9 Hypertension Unspec 300.00 Anxiety State Unspec Office Visit 12/29/2008 11:30a Main Office Anusha AYing 401.9 Hypertension Unspec Ruben, F.N.P.C. 300.02 Anxiety Disorder Generalized 386.10 Vertigo Peripheral Unspec 381.81 Eustachian Tube Dysfunction Office Visit 12/20/2008 2:30p Main Office Noemy Turner 401.9 Hypertension Unspec Storm, [employer]ER-C 300.02 Anxiety Disorder Generalized Office Visit 10/22/2008 3:15p Main Office Anusha Arredondo 709.9 Skin & Subcutaneous Ruben, Tissue Disorders F.N.P.C. Unspec 401.9 Hypertension Unspec Office Visit 05/31/2008 8:00a Main Office Anusha Arredondo V72.31 Routine Data Migration Lead Ruben, Examination F.N.P.C. 796.2 Blood Pressure Reading Elevated W/O Hypertension V74.1 Screening Examination Pulmonary Tuberculosis Office Visit 09/15/2007 11:15a Main Office Anusha Miranda, 724.5 Backache Unspec F.N.P.C. 599.7 Hematuria Office Visit 06/16/2007 8:00a Main Office Noemy uTrner V70.0 Examination General Dominguez, [employer]ER-C Medical Routine AT Health Care Facility 796.2 Blood Pressure Reading Elevated W/O Hypertension Office Visit 05/13/2006 8:15a Main Office Anusha Arredondo V70.0 Examination General Ruben, F.N.P.C. Medical Routine AT Health Care Facility 785.9 Cardiovascular Symptoms Other Office Visit 04/03/2005 3:30p Main Office Chika Winkler, 795.08 Pap Smear M.D. Unsatisfactory Office Visit 02/28/2005 11:00a Main Office Chika Winkler, 626.2 Menstruation M.D. Excessive Or Frequent Office Visit 02/05/2005 11:45a Main Office Chika Winkler, 626.2 Menstruation M.D. Excessive Or Frequent Office Visit 04/12/2004 8:30a Main Office Chika Winkler V72.3 Examination M.DYing Gynecological 796.2 Blood Pressure Reading Elevated W/O Hypertension Office Visit 10/28/2003 2:00p Main Office Anusha Miranda, 478.9 Upper Resp Tract F.N.P.C. Disease Other & Unspec Office Visit 04/06/2003 2:00p Main Office Vitaly Lewis M.D. 285.8 Anemia Other Spec 796.2 Blood Pressure Reading Elevated W/O Hypertension Office Visit 12/10/2001 10:45a Main Office Fina Patel V72.3 Examination Marleen Fleming Gynecological 626.2 Menstruation Excessive Or Frequent Office Visit 11/20/2001 3:15p Main Office Fina Patel 626.2 Menstruation Marleen Fleming Excessive Or Frequent 285.8 Anemia Other Spec Plan of Treatment 08/11/2018 - Sil Kaminski, NPZ00.00 Encntr for general adult medical exam w/o abnormal findingsFollow up:.Z12.31 Encounter for screening mammogram for malignant neoplasm ofNew Xrays:Mammography, Screening; Bilateral, Ordered: 08/11Z12.11 Encounter for screening for malignant neoplasm of hqwneT21 Essential ( primary) hypertensionFollow up:.
[2018-09-07] MEDS ORDERED: Dexamethasone IV* 4 MG/ML 1 ML (4 MG) IM ONE (11:26)
[2018-09-07] MEDS ORDERED: Ketorolac INJ* 30 MG/ML 1 ML VIAL IM ONE (11:27)
[2018-09-07 12:11] LABS: Urine Appearance Clear; Urine Bacteria Absent (Absent); Urine Bilirubin Negative (Negative); Urine Blood Negative (Negative); Urine Color Straw; Urine Glucose Negative (Negative); Urine Ketones Negative (Negative); Urine Nitrite Negative (Negative); Urine Protein Negative (Negative); Urine Red Blood Cell Trace(0-2/hpf) (Absent); Urine Specific Gravity 1.009 (1.010-1.030); Urine Squamous Epithelial Cell Present (Absent); Urine Urobilinogen Negative (Negative); Urine White Blood Cell Trace(0-5/hpf) (Absent)
[2018-09-07 13:02] VITALS: BP 142/88
== END 2018-09-07 13:01 | disposition home or self-care (01) ==
LOC: ED 10:22
DX: M51.06 Intervertebral disc disorders with myelopathy, lumbar region (principal); M51.16 Intervertebral disc disorders with radiculopathy, lumbar region
CPT/HCPCS: 72131; 74176; 81003; 81015; 87086; 96372; 99282; J1100; J1885

== ENCOUNTER 2019-01-27 06:36 | Inpatient (IN) | payer MEDICARE, OTHER ==
[2019-01-27 07:42] LABS: ABS Lymphocytes 0.7 10^3/ul (1.0-4.8); ABS Monocytes 0.4 10^3/ul (0-0.8); ABS Neutrophils 8.6 10^3/ul (1.5-7.7); Eosinophil % 0.1 %; Hematocrit 41 % (35-47); Hemoglobin 14.2 g/dL (12.0-16.0); Lymphocyte % 7.1 %; Mean Corpuscular HGB Conc 35 g/dL (31-36); Mean Corpuscular Hemoglobin 32 pg (27-31); Mean Corpuscular Volume 91 fL (80-97); Mean Platelet Volume 7.3 fL (7.4-10.4); Nucleated Red Blood Cells % 0.2; Platelet Count 228 10^3/uL (150-450); Red Blood Count 4.47 10^6 /uL (3.70-4.87); Red Cell Distribution Width 13 % (10-15); White Blood Count 9.8 10^3/uL (3.5-10.8)
[2019-01-27 08:01] LABS: Albumin 3.9 g/dL (3.2-5.2); Albumin/Globulin Ratio 1.4 (1-3); BUN/Creatinine Ratio 18.8 (8-20); C Reactive Protein 84.03 mg/L (<8.01); Calcium 9.3 mg/dL (8.6-10.3); EGFR African American 103.3 (>60); EGFR Non-African American 85.4 (>60); Globulin 2.8 g/dL (2-4); Potassium 3.8 mmol/L (3.5-5.0); Total Protein 6.7 g/dL (6.4-8.9)
[2019-01-27] MEDS ORDERED: Ondansetron ODT TAB* 4 MG PO ONE (08:34)
[2019-01-27] MEDS ORDERED: NS 0.9% 1000 ML** 1,000 ML IV ONE (08:57)
--- NOTE | 2019-01-27 09:11 | ED ---
Abdominal Pain/Female - HPI Summary HPI Summary: This patient is a 63 year old F presenting to [facility] accompanied by her son with a chief complaint of lower ABD pain since last night. The patient describes the pain as jabbing. The patient rates the pain 9/10 in severity. Patient reports 100.1 fever last night and N/V. Patient denies any chills, erythema of eyes, sore throat, CP, SOB, dysuria, hematuria, myalgia, edema, rash, or dizziness. Symptoms aggravated by coughing. Symptoms alleviated by nothing. Patient has hx of gallstones, sciatica, and Parkinsons disease. Patient notes she has been on antibiotics for E. coli in urine. Patient has not had any previous surgeries. Patient does not smoke or drink. - History of Current Complaint Chief Complaint: EDAbdPain Stated Complaint: ABD PAIN PER PT Time Seen by Provider: 01/27/19 07:35 Hx Obtained From: Patient ?: No Onset/Duration: Sudden Onset, Lasting Days - 1, Still Present Timing: Days - 1 Severity Initially: Severe Severity Currently: Severe Pain Intensity: 9 Pain Scale Used: 0-10 Numeric Location: Other - lower Character: Other: - jabbing pain Aggravating Factor(s): Other: - coughing Alleviating Factor(s): Nothing Associated Signs and Symptoms: Positive: Fever, Cough, Nausea, Vomiting, Other: - denies any chills, erythema of eyes, sore throat, CP, SOB, dysuria, hematuria , myalgia, edema, rash, or dizziness.. Negative: Diaphoresis, Chest Pain, Dizzy , Urinary Symptoms, Diarrhea Allergies/Adverse Reactions: Allergies Allergy/AdvReac Type Severity Reaction Status Date / Time No Known Allergies Allergy Verified 01/27/19 06:39 Home Medications: Home Medications Carbidopa/Levodop 25/100 MG(*) [Sinemet 25/100 TAB(*)] 1.5 tab PO TID 01/27/19 [ History Confirmed 01/27/19] PMH/Surg Hx/FS Hx/Imm Hx Previously Healthy: No Endocrine/Hematology History: Denies: Hx Bone Marrow Disease, Hx Diabetes Cardiovascular History: Reports: Hx Hypertension Denies: Hx Pacemaker/ICD Sensory History: Reports: Hx Contacts or Glasses Denies: Hx Hearing Aid Opthamlomology History: Reports: Hx Contacts or Glasses Neurological History: Reports: Other Neuro Impairments/Disorders - Parkinson's Disease Psychiatric History: Denies: Hx Panic Disorder - Cancer History Cancer Type, 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 Hx Chemotherapy: No Hx Radiation Therapy: No - Surgical History Surgical History: Yes Surgery Procedure, Year, and Place: skin cancer face - Immunization History Immunizations Up to Date: Yes Infectious Disease History: No Infectious Disease History: Denies: Hx Clostridium Difficile, Hx Hepatitis, Hx Human Immunodeficiency Virus (HIV), Hx of Known/Suspected MRSA, Hx Shingles, Hx Tuberculosis, Hx Known/ Suspected VRE, Hx Known/Suspected VRSA, History Other Infectious Disease, Traveled Outside the [place] in Last 30 Days - Family History Known Family History: Positive: Other - Breast cancer - Social History Alcohol Use: Rare Hx Substance Use: No Substance Use Type: Reports: None Hx Tobacco Use: No Smoking Status (MU): Never Smoked Tobacco Do You Chew or Dip Tobacco: No Have You Chewed or Dipped Tobacco in the LAST YEAR: No Have You Smoked in the Last Year: No Review of Systems Positive: Fever. Negative: Chills Negative: Erythema Negative: Sore Throat Negative: Chest Pain Positive: Cough. Negative: Shortness Of Breath Positive: Abdominal Pain, Vomiting, Nausea Negative: dysuria, hematuria Negative: Myalgia, Edema Negative: Rash Neurological: Other - negative - dizziness All Other Systems Reviewed And Are Negative: Yes Physical Exam - Summary Physical Exam Summary: Constitutional: Well-developed, Well-nourished, Alert. (-) Distressed Skin: Warm, Dry HENT: Normocephalic; Atraumatic Eyes: Conjunctiva normal Neck: Musculoskeletal ROM normal neck. (-) JVD, (-) Stridor, (-) Tracheal deviation Cardio: Rhythm regular, rate normal, Heart sounds normal; Intact distal pulses; The pedal pulses are 2+ and symmetric. Radial pulses are 2+ and symmetric. (-) Murmur Pulmonary/Chest wall: Effort normal. (-) Respiratory distress, (-) Wheezes, (-) Rales Abd: RLQ tenderness, mild LLQ tenderness, Soft, (-) Distension, (-) Guarding, (- ) Rebound Musculoskeletal: no CVA tenderness, (-) Edema Lymph: (-) Cervical adenopathy Neuro: Alert, Oriented x3 Psych: Mood and affect Normal Triage Information Reviewed: Yes Vital Signs On Initial Exam: Initial Vitals Temp Pulse Resp BP Pulse Ox 98.6 F 99 16 134/90 96 01/27/19 06:37 01/27/19 06:37 01/27/19 06:37 01/27/19 06:37 01/27/19 06:37 Vital Signs Reviewed: Yes Diagnostics - Vital Signs Vital Signs Temp Pulse Resp BP Pulse Ox 01/27/19 08:37 89 25 116/73 94 01/27/19 08:15 91 23 133/77 97 01/27/19 08:00 96 24 94 01/27/19 07:37 89 18 134/68 95 01/27/19 07:07 90 22 135/87 97 01/27/19 06:37 98.6 F 99 16 134/90 96 - Laboratory Lab Results: Lab Results 01/27/19 01/27/19 01/27/19 Range/Units 07:36 07:36 07:36 WBC 9.8 (3.5-10.8) 10^3/uL RBC 4.47 (3.70-4.87) 10^6 /uL Hgb 14.2 (12.0-16.0) g/dL Hct 41 (35-47) % MCV 91 (80-97) fL MCH 32 H (27-31) pg MCHC 35 (31-36) g/dL RDW 13 (10-15) % Plt Count 228 (150-450) 10^3/uL MPV 7.3 L (7.4-10.4) fL Neut % (Auto) 88.1 % Lymph % (Auto) 7.1 % [place] % (Auto) 4.3 % Eos % (Auto) 0.1 % Baso % (Auto) 0.4 % Absolute Neuts (auto) 8.6 H (1.5-7.7) 10^3/ul Absolute Lymphs (auto) 0.7 L (1.0-4.8) 10^3/ul Absolute Monos (auto) 0.4 (0-0.8) 10^3/ul Absolute Eos (auto) 0.0 (0-0.6) 10^3/ul Absolute Basos (auto) 0.0 (0-0.2) 10^3/ul Absolute Nucleated RBC 0.0 10^3/ul Nucleated RBC % 0.2 Sodium 138 (135-145) mmol/L Potassium 3.8 (3.5-5.0) mmol/L Chloride 105 (101-111) mmol/L Carbon Dioxide 27 (22-32) mmol/L Anion Gap 6 (2-11) mmol/L BUN 13 (6-24) mg/dL Creatinine 0.69 (0.51-0.95) mg/dL Est GFR ( Amer) 103.3 (>60) Est GFR (Non-Af Amer) 85.4 (>60) BUN/Creatinine Ratio 18.8 (8-20) Glucose 149 H (70-100) mg/dL Lactic Acid 1.3 (0.5-2.0) mmol/L Calcium 9.3 (8.6-10.3) mg/dL Total Bilirubin 1.00 (0.2-1.0) mg/dL AST 13 (13-39) U/L ALT 6 L (7-52) U/L Alkaline Phosphatase 75 (34-104) U/L C-Reactive Protein 84.03 H (<8.01) mg/L Total Protein 6.7 (6.4-8.9) g/dL Albumin 3.9 (3.2-5.2) g/dL Globulin 2.8 (2-4) g/dL Albumin/Globulin Ratio 1.4 (1-3) Lipase 13 (11.0-82.0) U/L Result Diagrams: 01/27/19 07:36 01/27/19 07:36 Lab Statement: Any lab studies that have been ordered have been reviewed, and results considered in the medical decision making process. - CT ABD/Pelivs CT Interpretation Completed By: Radiologist Summary of CT Findings: IMPRESSION: 1. MILDLY DILATED APPENDIX WITH APPENDICOLITH AT THE BASE AND PERIAPPENDICEAL. INFLAMMATORY CHANGE, CONCERNING FOR EARLY ACUTE APPENDICITIS. 2. CHOLELITHIASIS WITH MILD GALLBLADDER WALL THICKENING. These findings were reviewed by Dr. Nino. Abdominal Pain Fem Course/Dx - Course Course Of Treatment: This patient is a 63 year old F presenting to [facility] accompanied by her son with a chief complaint of lower ABD pain since last night. The patient describes the pain as jabbing. The patient rates the pain 9/ 10 in severity. Symptoms aggravated by coughing. Symptoms alleviated by nothing. Patient reports 100.1 fever last night and N/V. Patient denies any chills, erythema of eyes, sore throat, CP, SOB, dysuria, hematuria, myalgia, edema, rash, or dizziness. Patient has hx of gallstones, sciatica, and Parkinson s disease. Patient notes she has been on antibiotics for E. coli in urine. Patient has not had any previous surgeries. Patient does not smoke or drink. Physical exam shows RLQ tenderness, mild LLQ tenderness, and no CVA tenderness. Lab results show MCH 32, MPV 7.3, absolute neuts 8.6, absolute lymphs 0.7, glucose 149, ALT 6, c-reactive protein 84.03, urine protein 1+ A, urine ketones 1+ A, urine RBC, 3+ A, Ur squamous epith cells present A, urine ascorbic acid A. CT ABD/Pelvis IMPRESSION: 1. MILDLY DILATED APPENDIX WITH APPENDICOLITH AT THE BASE AND PERIAPPENDICEAL. INFLAMMATORY CHANGE, CONCERNING FOR EARLY ACUTE APPENDICITIS. 2. CHOLELITHIASIS WITH MILD GALLBLADDER WALL THICKENING. At 1004, Dr. Nino consults patient's case with Dr. Jones. RAYMUNDO Burden from surgery, evaluates the patient. During the ED course, the patient was given Cefepime, 2 mg in 50 mls @ 100 mls/hr, fluids, and Ondansetron 4 mg PO. - Diagnoses Provider Diagnoses: Appendicitis - Provider Notifications Discussed Care Of Patient With: Vitaly Jones Time Discussed With Above Provider: 10:04 Instructed by Provider To: Other - Dr. Nino consulted with Dr. Jones. Dr. Jones says RAYMUNDO Burden, will evaluate patient. At 1128, RAYMUNDO Rai completes the patient's history and physical. Patient will be admitted to surgical services. - Critical Care Time Critical Care Time: 30-74 min - 60 min Discharge - Sign-Out/Discharge Documenting (check all that apply): Patient Departure - admit Patient Received Moderate/Deep Sedation with Procedure: No - Discharge Plan Condition: Fair Disposition: ADMITTED TO [facility] Referrals: Sil Kaminski, MARINE BIOLOGIST [Primary Care Provider] - - Attestation Statements Document Initiated by Scribe: Yes Documenting Scribe: Augustine Guzman and Chris Ponce Provider For Whom Scribe is Documenting (Include Credential): Dr. Christiano Nino MD Scribe Attestation: Augustine Basurto and Chris Ponce, scribed for Dr. Christiano Nino MD on 01/27/19 at 1300. Status of Scribe Document: Ready
[2019-01-27] MEDS ORDERED: Iohexol 300* (CONTRAST) 10 ML SDV IV ONE (09:12)
[2019-01-27] MEDS ORDERED: Cefepime 2 GM in Dextrose(*) 2 GM/50 ML BAG IV ONE (10:00)
[2019-01-27 10:06] LABS: Urine Appearance Turbid; Urine Bacteria Absent (Absent); Urine Bilirubin Negative (Negative); Urine Blood Negative (Negative); Urine Color Amber; Urine Glucose Negative (Negative); Urine Ketones 1+ (Negative); Urine Nitrite Negative (Negative); Urine Protein 1+(30 mg/dL) (Negative); Urine Red Blood Cell 3+(>10/hpf) (Absent); Urine Specific Gravity 1.026 (1.010-1.030); Urine Squamous Epithelial Cell Present (Absent); Urine Urobilinogen Negative (Negative); Urine White Blood Cell Absent (Absent)
[2019-01-27] MEDS ORDERED: Bupivacaine 0.25% EPI 200,000* 30 ML SDV ONE (11:28)
[2019-01-27] MEDS ORDERED: Lidocaine 2% PF * 5 ML VIAL ONE (11:34)
[2019-01-27] MEDS ORDERED: fentaNYL* 50 MCG/ML 2 ML VIAL (100 MCG VIAL) ONE ×2 (11:34→12:47)
[2019-01-27] MEDS ORDERED: Succinylcholine* 20 MG/ML 10 ML VIAL ONE (11:35)
[2019-01-27] MEDS ORDERED: Propofol* 10 MG/ML 20 ML BTL ONE ×2 (11:35→13:07)
[2019-01-27] MEDS ORDERED: Dexamethasone IV* 4 MG/ML 1 ML (4 MG) ONE (12:26)
[2019-01-27] MEDS ORDERED: Ondansetron INJ* 2 MG/ML VIAL ONE (12:26)
[2019-01-27] MEDS ORDERED: Phenylephrine 40 MCG/ML SYRINGE ONE (12:26)
--- NOTE | 2019-01-27 12:44 | HP ---
CC: Sil Kaminski NP * DATE OF ADMISSION: 01/27/2019. The patient was seen initially in the ED. ATTENDING SURGEON: Dr. Vitaly Jones * (RAYMUNDO Burden dictating). CHIEF COMPLAINT: Abdominal pain. HISTORY OF PRESENT ILLNESS: This is a 63-year-old hypertensive female with Parkinson's disease who noted onset of anorexia early in the day yesterday, 02/2019. Around mid afternoon, she began to experience crampy, right-sided pain which seemed to begin in the right lower quadrant and later in the evening and night included some radiation to the mid abdomen. Pain has been worse with movement, but continues at a low grade level even when she is in a comfortable position. She reports vomiting times two, once at home and once here in the ED , and she has been anorexic throughout this acute illness. She did have a loose bowel movement here at the hospital, but otherwise denies diarrhea. She has not had any similar prior episodes. She has not had any prior abdominal surgeries. She did have a temperature of 100.1 at home. She denies any symptoms. PAST MEDICAL HISTORY: Parkinson's disease, hypertension, osteoarthritis, lumbar radiculopathy. PAST SURGICAL HISTORY: Her only surgeries have been for excision of basal cell skin cancers. CURRENT MEDICATIONS: 1. Carbidopa Levodopa 25/100 lxe-aiy-a-half tablets t.i.d. 2. Atenolol 25 mg once daily. 3. Vitamin C, calcium, magnesium, and B12 supplements. DRUG ALLERGIES: None known. FAMILY HISTORY: Negative for anesthesia problems or bleeding disorders. She does have a sister who had a history of a DVT. SOCIAL HISTORY: The patient lives alone. Her son accompanies her here in the ED. 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 She denies the use of tobacco, alcohol, or recreational drugs. REVIEW OF SYSTEMS: General: No recent constitutional symptoms or acute illnesses other than described above. She states that her weight is down about 20 pounds since the beginning of the year, largely related to loss of appetite which she relates to her lower back pain. HEENT: Early cataracts. No other problems reported. Cardiovascular: No chest pain, palpitations, or history of heart murmur. She is treated for hypertension. Respiratory: No history of asthma, chronic cough, or shortness of breath. GI: As above per HPI, no additions. : No dysuria or hematuria. No increased frequency. Endocrine: No diabetes or thyroid dysfunction. CUSTOM HARVESTER: She is up-to-date this year for breast exam and mammogram, both reportedly normal. Her last pelvic exam and pap smear were within the past three to five years and these are no longer required. They had previously been normal. Musculoskeletal: She does have lumbar radiculopathy and degenerative disk disease of the lumbar spine and what appears to be a degree of scoliosis of the current CT. Neuro/psych: She is treated for Parkinson's disease. PHYSICAL EXAMINATION GENERAL: Well-nourished, somewhat thin female in no acute distress. SKIN: Warm and dry. No suspicious rashes or lesions. VITAL SIGNS: Height 5'3-1/2", weight 142 pounds. Temperature 98.6, blood pressure 124/78, pulse 93, respirations 17 to 23, room air saturation 92 to 94 percent. HEENT: Pupils equal, round, and reactive. EOM's intact. No conjunctival pallor. Scleral icterus. Oropharynx: Mucus membranes slightly dry. No intraoral lesions. Teeth otherwise in good repair. NECK: No lymphadenopathy, thyromegaly, or masses. LUNGS: Clear to auscultation. No rales or wheezes. HEART: Regular rate and rhythm. No murmur noted. BREASTS: Not examined. ABDOMEN: Flat, nondistended. Bowel sounds hypoactive. Soft with well- localized tenderness in the right lower quadrant around McBurney's point. There is some firmness and guarding, though no rebound or referred tenderness. No palpable masses. No tenderness in the right upper quadrant. No palpable hernias. BACK: No spinous process or CVA tenderness. EXTREMITIES: No edema. GENITALIA: Not done. RECTAL: Not done. NEUROLOGIC: Grossly intact though with obvious tremor consistent with known Parkinson's disease. LABORATORY DATA: Of note, white blood cell count 9,800 with 88 percent neutrophils, hemoglobin 14.2, glucose 149, lactic acid is normal at 1.3, CRP is elevated at 84. Liver function test and lipase are normal. Urinalysis is notable for 1+ protein, positive for ketones, and 3+ RBC's. IMAGING STUDIES: CT scan with IV contrast only shows a large calcified gallstone with possible mild gallbladder wall thickening, though no other inflammatory changes. There is diverticulosis without evidence of diverticulitis. There is what appears to be an appendicolith in the base of the appendix, as well as a separate one in the tip. There is mild periappendiceal stranding consistent with appendicitis. IMPRESSION: Acute appendicitis. PLAN: Laparoscopic appendectomy pending confirmation of exam and plan by Dr. Jones. She has already received one dose of Cefepime in the ED. RAYMUNDO BURDEN [id number]/CPS #: [id number] [facility]
[2019-01-27] MEDS ORDERED: Ondansetron INJ* 2 MG/ML VIAL IV PRN ×2 (12:52→13:41)
[2019-01-27] MEDS ORDERED: fentaNYL* 50 MCG/ML 2 ML VIAL (100 MCG VIAL) IV PRN (12:52)
[2019-01-27] MEDS ORDERED: Acetaminophen IV 1GM/100ML * 1,000 MG/100 ML VIAL IVPB ONE (12:52)
[2019-01-27] MEDS ORDERED: Naloxone* 0.4 MG/ML 1 ML VIAL IV PRN (12:52)
[2019-01-27] MEDS ORDERED: oxyCODONE TAB* 5 MG TAB PO PRN (12:52)
[2019-01-27] MEDS ORDERED: Ketorolac INJ* 30 MG/ML 1 ML VIAL IV PRN ×2 (12:52→13:41)
[2019-01-27] MEDS ORDERED: HYDROmorphone INJ1* 1 MG/ML SYRINGE IV SLOW PU PRN (13:41)
--- NOTE | 2019-01-27 13:41 | BRIEFOPN ---
Brief Operative Note - Surgery Procedures: OPERATIVE NOTE Pre-Operative Diagnosis: Acute appendicitis Post-Operative Diagnosis:Acute gangrenous appendicitis with perforation and purulent peritonitis, no abscess Procedure:Laparoscopic appendectomy Surgeon: Sherita Umanzor MD Flat Bed Knitter:None Anesthesia: Local with MAC General with Dr. Green IVF:1 l of crystalloid EBL:min Specimen:appendix Drain: none Wound Class:4 TO PACU
[2019-01-27] MEDS ORDERED: Ketorolac INJ* 30 MG/ML 1 ML VIAL ONE (13:57)
[2019-01-27] MEDS ORDERED: Acetaminophen IV 1GM/100ML * 100 ML ONE (13:58)
[2019-01-27] MEDS: NS 0.9% 1000 ML** 1,000 ML IV SCH (15:41)
[2019-01-27] MEDS: Carbidopa/Levodop 25/100 MG TAB(*) PO SCH ×2 (15:42→20:50)
[2019-01-27] MEDS: oxyCODONE/Acetamin 5/325 MG* TAB PO PRN (15:43)
--- NOTE | 2019-01-27 17:18 | OP ---
DATE OF OPERATION: 01/27/19 - ROOM #341 DATE OF : 51 SURGEON: Marin Umanzor MD. SAUSAGE MACHINE OPERATOR: None. ANESTHESIOLOGIST: Dr. Mars ANESTHESIA: General with local.. PRE-OP DIAGNOSIS: Acute appendicitis. POST-OP DIAGNOSIS: Acute gangrenous appendicitis with perforation and purulent peritonitis, no abscess noted. OPERATIVE PROCEDURE: Laparoscopic appendectomy. ESTIMATED BLOOD LOSS: Minimal. IV FLUIDS: 1 L crystalloids. DRAINS: None. SPECIMEN: Appendix. COMPLICATIONS: None. WOUND CLASSIFICATION: 4. FINDINGS: The patient had acute gangrenous appendicitis with an area of obvious perforation towards the base of the appendix where there was an appendicolith noted. There was no abscess noted however, but there was purulent fluid in all 4 quadrants of the abdomen. BRIEF HISTORY: Ms. Reanna West is a 63-year-old woman with Parkinson's disease and hypertension who presented to the emergency room earlier this morning with a 16 to 20 hours of lower abdominal discomfort becoming mainly in the right lower quadrant. She was noted to have a normal white blood cell count and was hemodynamically stable. CT scan of the abdomen and pelvis showed finding consistent with acute appendicitis with appendicolith at the base of the appendix with periappendiceal inflammation. There was some mild fluid, but no evidence of abscess, extraluminal air or other signs of perforation. After being seen in surgical consultation. It was recommended to her that she undergo a laparoscopic appendectomy. The procedure was discussed with both the patient and her son, who was present at the bedside, and the risks of, but not limited to bleeding, infection, intra-abdominal abscess formation injured peritoneal and retroperitoneal structures, possibility of an open procedure, possibility of abscess formation with appendiceal stump leak, the risk of anesthesia and deep vein thrombosis were all discussed. They understand and wish to proceed. DESCRIPTION OF PROCEDURE: Written informed consent was obtained, the abdomen\ was marked with indelible ink, and the patient was given preoperative antibiotics IV. She was taken to the operating room placed in the supine position. Sequential compression devices and a warming blanket were applied. General anesthesia was administered and the Munoz catheter was inserted. The abdomen was prepped and draped in the usual sterile fashion. Time-out verification was completed. Small transverse incision was made just above the umbilicus, in the midline. The peritoneal cavity was entered under direct vision. A 12-mm blunt port was inserted and the abdomen was insufflated to 15 mmHg. It was obvious upon inserting the camera that there was purulent peritonitis in all 4 quadrants with inflammation of the small bowel serosa and right colon, mainly in the pelvis and the right side of the abdomen. There was turbid fluid up over the liver as well as the left lobe of the liver. The gallbladder appeared to be unremarkable. A 5-mm port was placed in the left lower quadrant abdomen and a second 5 mm port was placed in suprapubic position. With care the small bowel which was adherent with fibrin into the right lower quadrant and pelvis was delivered up in the view. The patient was placed in Trendelenburg position. The left ovary appeared to be unremarkable as well as the uterus. We were able to identify the terminal ileum and other than having serosal inflammation, it was unremarkable; and, following this into the cecum, it was evident that the cecum also had serosal inflammation, but no evidence of wall thickening or primary pathology. The appendix was then identified extending down into the pelvis underneath the terminal ileum. It was gangrenous throughout its length and it was quite adherent to the pelvic side wall. This was delivered up in the view and it was evident that there was several appendicoliths along its length, including towards the base and here there was noted to be a small area of perforation with pus oozing from the lumen of the appendix. With care, the mesoappendix was taken sequentially with the LigaSure device down to the base. I did mobilize the cecum laterally by dividing some peritoneal attachments to deliver this better up in the view. The very base of the appendix and cecum were viable and I used a puga load of a 45 mm Endo TANMAY stapler and fired this along the cecum well below the gangrenous change along appendix to amputate the appendix and remove this. This was then placed in an Endo Catch bag and brought out through the umbilical incision. The staple line was intact without evidence of bleeding. I then used a 3 to 4 L of normal saline to irrigate all 4 quadrants of the abdomen until this was cleared. I did not placed a drain. All ports were removed from the direct vision of the camera. The umbilical fascia was closed with interrupted 0-Vicryl suture. The skin of all 3 incision was approximated with subcuticular 4-0 Vicryl sutures. Steri-Strips were applied. The patient tolerated the procedure well and was sent to recovery room in stable condition. [id number]/CPS #: [id number] [facility]
[2019-01-27] MEDS ORDERED: ZOSYN 3.375 GM x ONE DOSE over 30 miuntes IVPB ×2 (18:00)
[2019-01-27] MEDS: Heparin VIAL(*) 5000 UNITS/ML VIAL (FIVE THOUSAND) SUBCUT SCH (23:10)
[2019-01-27] MEDS: Piperacillin/Tazobactam VIAL*) 3.375 GM in NS 0.9% 100 ML* 100 ML IVPB SCH (23:10)
[2019-01-28] MEDS: NS 0.9% 1000 ML** 1,000 ML IV SCH ×3 (01:53→22:32)
[2019-01-28] MEDS: Heparin VIAL(*) 5000 UNITS/ML VIAL (FIVE THOUSAND) SUBCUT SCH ×3 (06:01→22:35)
[2019-01-28 06:21] LABS: ABS Monocytes 0.6 10^3/ul (0-0.8); ABS Neutrophils 12.3 10^3/ul (1.5-7.7); Hematocrit 33 % (35-47); Hemoglobin 11.5 g/dL (12.0-16.0); Lymphocyte % 6.8 %; Mean Corpuscular HGB Conc 35 g/dL (31-36); Mean Corpuscular Hemoglobin 32 pg (27-31); Mean Corpuscular Volume 92 fL (80-97); Mean Platelet Volume 7.7 fL (7.4-10.4); Nucleated Red Blood Cells % 0.1; Platelet Count 182 10^3/uL (150-450); Red Blood Count 3.63 10^6 /uL (3.70-4.87); Red Cell Distribution Width 13 % (10-15)
[2019-01-28 06:39] LABS: Albumin 2.8 g/dL (3.2-5.2); Albumin/Globulin Ratio 1.2 (1-3); BUN/Creatinine Ratio 23.3 (8-20); Calcium 7.8 mg/dL (8.6-10.3); EGFR African American 96.8 (>60); Globulin 2.4 g/dL (2-4); Potassium 3.5 mmol/L (3.5-5.0); Total Bilirubin 0.8 mg/dL (0.2-1.0); Total Protein 5.2 g/dL (6.4-8.9)
[2019-01-28] MEDS: Piperacillin/Tazobactam VIAL*) 3.375 GM in NS 0.9% 100 ML* 100 ML IVPB SCH ×3 (07:41→23:23)
[2019-01-28] MEDS ORDERED: NS 0.9% 500 ML* 500 ML IV ONE (08:19)
[2019-01-28] MEDS ORDERED: Atenolol TAB* 25 MG PO SCH (09:00)
[2019-01-28] MEDS: Carbidopa/Levodop 25/100 MG TAB(*) PO SCH ×3 (09:06→20:03)
--- NOTE | 2019-01-28 09:22 | PN ---
Progress Note - Progress Note Date of Service: 01/28/19 SOAP: Subjective: Doing well today-minimal pain and started taking some clears last night No SOB Low urine output overnight, received some fluid Objective: Temp Pulse Resp BP Pulse Ox 98.6 F 82 16 103/55 99 01/28/19 07:33 01/28/19 07:33 01/28/19 07:45 01/28/19 07:33 01/28/19 07:33 Intake & Output 01/26/19 01/27/19 01/28/19 01/29/19 06:59 06:59 06:59 06:59 Intake Total 4089 1267 Output Total 1000 Balance 3089 1267 Weight 142 lb 142 lb Intake: IV Fluids 3030 1267 LR 1000 500 NS (0.9%) 980 767 IVPB 219 ABX - ZOSYN 219 Oral 840 Output: Mcguire 1000 Other: # Bowel Movements 0 PEX: Comfortable-awake and alert Lungs clear Cor is RRR Abd is soft and non-distended. Incisions are CDI. No bowel sounds present. Ext without edema. Laboratory Results - last 24 hr 01/27/19 01/27/19 01/28/19 09:04 15:49 06:13 WBC 14.0 H RBC 3.63 L Hgb 11.5 L Hct 33 L MCV 92 MCH 32 H MCHC 35 RDW 13 Plt Count 182 MPV 7.7 Neut % (Auto) 88.5 Lymph % (Auto) 6.8 [place] % (Auto) 4.6 Eos % (Auto) 0.0 Baso % (Auto) 0.1 Absolute Neuts (auto) 12.3 H Absolute Lymphs (auto) 1.0 Absolute Monos (auto) 0.6 Absolute Eos (auto) 0.0 Absolute Basos (auto) 0.0 Absolute Nucleated RBC 0.0 Nucleated RBC % 0.1 Sodium Potassium Chloride Carbon Dioxide Anion Gap BUN Creatinine Est GFR ( Amer) Est GFR (Non-Af Amer) BUN/Creatinine Ratio Glucose Lactic Acid 0.7 Calcium Total Bilirubin AST ALT Alkaline Phosphatase Total Protein Albumin Globulin Albumin/Globulin Ratio Urine Color Elisha Urine Appearance Turbid Urine pH 5.0 Ur Specific [place] 1.026 Urine Protein 1+(30 mg/dl) A Urine Ketones 1+ A Urine Blood Negative Urine Nitrate Negative Urine Bilirubin Negative Urine Urobilinogen Negative Ur Leukocyte Esterase Negative Urine WBC (Auto) Absent Urine RBC (Auto) 3+(>10/hpf) A Ur Squamous Epith Cells Present A Urine Bacteria Absent Urine Glucose Negative Urine Ascorbic Acid * A 01/28/19 06:13 WBC RBC Hgb Hct MCV MCH MCHC RDW Plt Count MPV Neut % (Auto) Lymph % (Auto) [place] % (Auto) Eos % (Auto) Baso % (Auto) Absolute Neuts (auto) Absolute Lymphs (auto) Absolute Monos (auto) Absolute Eos (auto) Absolute Basos (auto) Absolute Nucleated RBC Nucleated RBC % Sodium 140 Potassium 3.5 Chloride 112 H Carbon Dioxide 24 Anion Gap 4 BUN 17 Creatinine 0.73 Est GFR ( Amer) 96.8 Est GFR (Non-Af Amer) 80.0 BUN/Creatinine Ratio 23.3 H Glucose 102 H Lactic Acid Calcium 7.8 L Total Bilirubin 0.80 AST 15 ALT 4 L Alkaline Phosphatase 51 Total Protein 5.2 L Albumin 2.8 L Globulin 2.4 Albumin/Globulin Ratio 1.2 Urine Color Urine Appearance Urine pH Ur Specific [place] Urine Protein Urine Ketones Urine Blood Urine Nitrate Urine Bilirubin Urine Urobilinogen Ur Leukocyte Esterase Urine WBC (Auto) Urine RBC (Auto) Ur Squamous Epith Cells Urine Bacteria Urine Glucose Urine Ascorbic Acid Assessment: POD# 1 s/p lap appy-perforated appendix with purulent peritonitis Parkinson's disease Plan: IV Zosyn IV fluids, continue mcguire for today to follow urine output Increase activity, pulmonary toilet. Subq heparin Parkinson's meds Hold Atenolol with decreased BP Care plan discussed with patient and I discussed with son yesterday after surgery.
[2019-01-28] MEDS: Atenolol TAB* 25 MG PO SCH (20:03)
[2019-01-29] MEDS: oxyCODONE/Acetamin 5/325 MG* TAB PO PRN (00:04)
[2019-01-29] MEDS: Heparin VIAL(*) 5000 UNITS/ML VIAL (FIVE THOUSAND) SUBCUT SCH ×3 (05:31→21:01)
[2019-01-29 05:54] LABS: ABS Eosinophils 0.1 10^3/ul (0-0.6); ABS Monocytes 0.5 10^3/ul (0-0.8); ABS Neutrophils 9.2 10^3/ul (1.5-7.7); Eosinophil % 1.3 %; Hematocrit 32 % (35-47); Lymphocyte % 9.1 %; Mean Corpuscular HGB Conc 35 g/dL (31-36); Mean Corpuscular Hemoglobin 32 pg (27-31); Mean Corpuscular Volume 91 fL (80-97); Mean Platelet Volume 7.8 fL (7.4-10.4); Platelet Count 185 10^3/uL (150-450); Red Blood Count 3.47 10^6 /uL (3.70-4.87); Red Cell Distribution Width 13 % (10-15); White Blood Count 10.9 10^3/uL (3.5-10.8)
[2019-01-29 06:12] LABS: Calcium 8.1 mg/dL (8.6-10.3); EGFR African American 116.9 (>60); EGFR Non-African American 96.6 (>60); Potassium 3.2 mmol/L (3.5-5.0)
[2019-01-29] MEDS: NS 0.9% 1000 ML** 1,000 ML IV SCH (07:49)
[2019-01-29] MEDS: Piperacillin/Tazobactam VIAL*) 3.375 GM in NS 0.9% 100 ML* 100 ML IVPB SCH ×3 (07:49→23:43)
[2019-01-29] MEDS: Carbidopa/Levodop 25/100 MG TAB(*) PO SCH ×3 (07:49→20:05)
[2019-01-29] MEDS: Atenolol TAB* 25 MG PO SCH (07:50)
--- NOTE | 2019-01-29 08:46 | PN ---
Progress Note - Progress Note Date of Service: 01/29/19 SOAP: Subjective: Multiple loose green BM's yesterday and overnight Minimal abdominal pain Tolerating clear liquids, not much appetite Ambulated to BR twice She gives history of being on oral antibiotics a month ago for a UTI Objective: Tmax 100 Temp Pulse Resp BP Pulse Ox 98.7 F 90 16 134/72 93 01/29/19 07:31 01/29/19 07:31 01/29/19 07:31 01/29/19 07:31 01/29/19 07:31 Intake & Output 01/27/19 01/28/19 01/29/19 01/30/19 06:59 06:59 06:59 06:59 Intake Total 4089 5995 Output Total 1000 900 Balance 3089 5095 Weight 142 lb 142 lb Intake: IV Fluids 3030 3426 LR 1000 500 NS (0.9%) 980 1316 NS bolus 500 IVPB 219 219 ABX - ZOSYN 219 219 Oral 840 2350 Output: Mcguire 1000 900 Other: Estimated Void Medium Date of Last Bowel 01/29/19 Movement # Bowel Movements 0 2 Estimated Stool Amount Medium # Voids 1 PEX: Awake and alert-comfortable Lungs are clear Abd is soft and slightly distended. Bowel sounds present, slightly hyperactive. Incisions CDI. Appropriate incisional tenderness. Ext without edema Laboratory Results - last 24 hr 01/29/19 01/29/19 05:38 05:38 WBC 10.9 H RBC 3.47 L Hgb 11.0 L Hct 32 L MCV 91 MCH 32 H MCHC 35 RDW 13 Plt Count 185 MPV 7.8 Neut % (Auto) 84.8 Lymph % (Auto) 9.1 [place] % (Auto) 4.6 Eos % (Auto) 1.3 Baso % (Auto) 0.2 Absolute Neuts (auto) 9.2 H Absolute Lymphs (auto) 1.0 Absolute Monos (auto) 0.5 Absolute Eos (auto) 0.1 Absolute Basos (auto) 0.0 Absolute Nucleated RBC 0.0 Nucleated RBC % 0.0 Sodium 141 Potassium 3.2 L Chloride 115 H Carbon Dioxide 20 L Anion Gap 6 BUN 13 Creatinine 0.62 Est GFR ( Amer) 116.9 Est GFR (Non-Af Amer) 96.6 BUN/Creatinine Ratio 21.0 H Glucose 81 Calcium 8.1 L Assessment: POD# 2 s/p lap appy for perforated appendicitis with purulent peritonitis Diarrhea Recent oral antibiotic use WBC now normal Plan: Continue IV abx for appendicitis D/C mcguire Increase po Increase activity Subq heparin Diarrhea of this frequency and duration unusual after appendicitis/appendectomy and with low grade fever and recent oral antibiotic use, will check stool for C. diff toxin.
[2019-01-29] MEDS: Potassium Chloride IV* 40 MEQ in Lactated Ringers 1000 ML Bag* 1,000 ML IVPB SCH ×3 (11:00→20:59)
[2019-01-30] MEDS: Potassium Chloride IV* 40 MEQ in Lactated Ringers 1000 ML Bag* 1,000 ML IVPB SCH ×4 (05:06→18:25)
[2019-01-30] MEDS: Piperacillin/Tazobactam VIAL*) 3.375 GM in NS 0.9% 100 ML* 100 ML IVPB SCH ×3 (05:08→17:29)
[2019-01-30] MEDS: Heparin VIAL(*) 5000 UNITS/ML VIAL (FIVE THOUSAND) SUBCUT SCH ×3 (05:11→22:10)
[2019-01-30 06:56] LABS: Hematocrit 31 % (35-47); Hemoglobin 10.9 g/dL (12.0-16.0); Mean Corpuscular HGB Conc 36 g/dL (31-36); Mean Corpuscular Hemoglobin 32 pg (27-31); Mean Corpuscular Volume 91 fL (80-97); Platelet Count 200 10^3/uL (150-450); Red Blood Count 3.39 10^6 /uL (3.70-4.87); Red Cell Distribution Width 13 % (10-15); White Blood Count 8.2 10^3/uL (3.5-10.8)
[2019-01-30 07:12] LABS: BUN/Creatinine Ratio 11.3 (8-20); EGFR African American 140.1 (>60); EGFR Non-African American 115.8 (>60); Potassium 3.5 mmol/L (3.5-5.0)
[2019-01-30] MEDS: Atenolol TAB* 25 MG PO SCH (08:13)
[2019-01-30] MEDS: Carbidopa/Levodop 25/100 MG TAB(*) PO SCH ×3 (09:30→21:06)
--- NOTE | 2019-01-30 13:47 | PN ---
Progress Note - Progress Note Date of Service: 01/30/19 SOAP: Subjective: Feels better today Still having some diarrhea-much less in amount and frequncy Poor appetite but tolerating some liquids OOB in chair when seen. Objective: Temp Pulse Resp BP Pulse Ox 98.3 F 80 18 134/88 97 01/30/19 11:06 01/30/19 11:06 01/30/19 11:06 01/30/19 11:06 01/30/19 11:06 Intake & Output 01/28/19 01/29/19 01/30/19 01/31/19 06:59 06:59 06:59 06:59 Intake Total 4089 5995 4285 1240 Output Total 1000 900 855 Balance 3089 5095 3430 1240 Weight 142 lb Intake: IV Fluids 3030 3426 1945 1140 ABX - ZOSYN 205 100 LR 1000 500 LR with 40k 1025 1010 NS (0.9%) 980 1316 715 30 NS bolus 500 IVPB 219 219 ABX - ZOSYN 219 219 Oral 840 2350 2340 100 Output: Urine 600 Munoz 1000 900 255 Other: Estimated Void Medium Medium Medium Date of Last Bowel 01/29/19 01/30/19 Movement # Bowel Movements 0 2 2 Estimated Stool Amount Medium Medium # Voids 1 1 1 PEX: Comfortable Lungs are clear Abd is soft and slightly distended. Few bowel sounds are present. Incisions CDI Ext without edema Laboratory Results - last 24 hr 01/30/19 01/30/19 06:32 06:32 WBC 8.2 RBC 3.39 L Hgb 10.9 L Hct 31 L MCV 91 MCH 32 H MCHC 36 RDW 13 Plt Count 200 MPV 8.0 Sodium 141 Potassium 3.5 Chloride 113 H Carbon Dioxide 20 L Anion Gap 8 BUN 6 Creatinine 0.53 Est GFR ( Amer) 140.1 Est GFR (Non-Af Amer) 115.8 BUN/Creatinine Ratio 11.3 Glucose 101 H Calcium 8.0 L C. diff negative Assessment: POD# 3 s/p lap appy for perforated appendicitis Parkinson's disease Diarrhea-improving, ? etiology Plan: IV abx Advance diet Increase activity Hold off on stool cultures for now Subq heparin Discussed care with patient and her son.
[2019-01-30] MEDS: oxyCODONE/Acetamin 5/325 MG* TAB PO PRN (14:51)
[2019-01-31] MEDS: Piperacillin/Tazobactam VIAL*) 3.375 GM in NS 0.9% 100 ML* 100 ML IVPB SCH ×4 (00:19→18:47)
[2019-01-31] MEDS: Potassium Chloride IV* 40 MEQ in Lactated Ringers 1000 ML Bag* 1,000 ML IVPB SCH ×2 (03:28→08:47)
[2019-01-31] MEDS: Heparin VIAL(*) 5000 UNITS/ML VIAL (FIVE THOUSAND) SUBCUT SCH ×3 (06:22→22:14)
[2019-01-31] MEDS: Carbidopa/Levodop 25/100 MG TAB(*) PO SCH ×3 (08:50→20:46)
[2019-01-31] MEDS: Atenolol TAB* 25 MG PO SCH (08:50)
--- NOTE | 2019-01-31 11:45 | PN ---
Progress Note - Progress Note Date of Service: 01/31/19 SOAP: Subjective: pt seen and examined. Pt feels well, c/o loose bms no nausea, Objective: Temp Pulse Resp BP Pulse Ox 98.3 F 75 18 151/86 97 01/31/19 07:49 01/31/19 07:49 01/31/19 07:49 01/31/19 07:49 01/31/19 07:49 Intake & Output 01/30/19 01/31/19 01/31/19 22:59 06:59 14:59 Intake Total 1480 1144 Output Total 200 1250 700 Balance 1280 -106 -700 a and ox3, nad abdo: soft, Nd, NT, steristrip in place rectal: no stool, no fullness ext wnl Assessment: POd 5 ap appy- perfed Plan: cont iv abx d/c ivf encourage PO
[2019-02-01] MEDS: Piperacillin/Tazobactam VIAL*) 3.375 GM in NS 0.9% 100 ML* 100 ML IVPB SCH ×5 (00:37→23:37)
[2019-02-01 05:42] LABS: ABS Eosinophils 0.4 10^3/ul (0-0.6); ABS Lymphocytes 1.4 10^3/ul (1.0-4.8); ABS Monocytes 0.7 10^3/ul (0-0.8); ABS Neutrophils 4.1 10^3/ul (1.5-7.7); Eosinophil % 6.3 %; Hematocrit 33 % (35-47); Hemoglobin 11.5 g/dL (12.0-16.0); Lymphocyte % 20.8 %; Mean Corpuscular HGB Conc 35 g/dL (31-36); Mean Corpuscular Hemoglobin 32 pg (27-31); Mean Corpuscular Volume 90 fL (80-97); Mean Platelet Volume 7.6 fL (7.4-10.4); Platelet Count 252 10^3/uL (150-450); Red Blood Count 3.65 10^6 /uL (3.70-4.87); Red Cell Distribution Width 13 % (10-15); White Blood Count 6.7 10^3/uL (3.5-10.8)
[2019-02-01] MEDS: Heparin VIAL(*) 5000 UNITS/ML VIAL (FIVE THOUSAND) SUBCUT SCH ×3 (05:59→21:27)
[2019-02-01] MEDS: Atenolol TAB* 25 MG PO SCH (07:43)
[2019-02-01] MEDS: Carbidopa/Levodop 25/100 MG TAB(*) PO SCH ×3 (08:39→21:28)
--- NOTE | 2019-02-01 09:44 | PN ---
Progress Note - Progress Note Date of Service: 02/01/19 SOAP: Subjective: pt seen and examined. Pt feels well, c/o loose bms, but less no nausea, good appetite Objective: Temp Pulse Resp BP Pulse Ox 99.7 F 90 22 151/76 97 02/01/19 07:27 02/01/19 07:27 02/01/19 08:00 02/01/19 07:27 02/01/19 07:27 Intake & Output 01/31/19 02/01/19 02/01/19 22:59 06:59 14:59 Intake Total 1300 200 480 Output Total 1700 800 275 Balance -400 -600 205 a and ox3, nad lungs clear abdo: soft, Nd, NT, steristrip in place ext wnl Assessment: POd 6 lap appy- perfed Plan: cont iv abx d/c ivf encourage PO d/c home tomorrow
[2019-02-02] MEDS: Piperacillin/Tazobactam VIAL*) 3.375 GM in NS 0.9% 100 ML* 100 ML IVPB SCH (05:24)
[2019-02-02] MEDS: Heparin VIAL(*) 5000 UNITS/ML VIAL (FIVE THOUSAND) SUBCUT SCH (05:24)
[2019-02-02 07:21] VITALS: BP 159/83
[2019-02-02] MEDS: Atenolol TAB* 25 MG PO SCH (07:34)
--- NOTE | 2019-02-02 09:01 | PN ---
Progress Note - Progress Note Date of Service: 02/02/19 SOAP: Subjective: Doing well Tolerating regular food Loose BM's less frequent, more solid No abdominal pain Objective: Temp Pulse Resp BP Pulse Ox 98.6 F 86 16 159/83 96 02/02/19 07:20 02/02/19 07:20 02/02/19 07:40 02/02/19 07:21 02/02/19 07:20 Intake & Output 01/31/19 02/01/19 02/02/19 02/03/19 06:59 06:59 06:59 06:59 Intake Total 4264 2465 2125 Output Total 1450 4650 975 150 Balance 2814 -2185 1150 -150 Intake: IV Fluids 3134 965 ABX - ZOSYN 100 LR with 40k 3004 965 NS (0.9%) 30 IVPB 305 ABX - ZOSYN 305 Oral 1130 1500 1820 Output: Urine 1450 4450 975 150 Liquid Stool 200 Other: Estimated Void Large Medium Date of Last Bowel 01/31/19 02/02/2019 Movement # Bowel Movements 3 1 1 1 Estimated Stool Amount Small Small Medium Small # Voids 1 1 PEX: Comfortable Lungs are clear Abd is soft and non-distended. Bowel sounds are present. Incisions CDI Ext without edema Assessment: POD# 6 s/p lap appy for perforated appendicitis with purulent peritonitis Diarrhea-improved, suspect related to antibiotic use, C. Diff negative Plan: D/C home today No further antibiotics Probioitcs Outpatient follow up Instructions reviewed with patient.
[2019-02-02] MEDS: Carbidopa/Levodop 25/100 MG TAB(*) PO SCH (09:16)
--- NOTE | 2019-02-02 10:47 | DS ---
CC: Noemy Mix NP, [facility] * DISCHARGE SUMMARY: DATE OF ADMISSION: 01/27/19 DATE OF DISCHARGE: 02/02/19 PRINCIPAL DIAGNOSIS: Acute gangrenous appendicitis with purulent peritonitis. PROCEDURE PERFORMED: Laparoscopic appendectomy. DISPOSITION: To home. CONDITION ON DISCHARGE: Good. MEDICINES ON DISCHARGE: Included: 1. Atenolol 25 mg daily. 2. Carbidopa/levodopa 1.5 mg p.o. t.i.d. 3. Tylenol p.r.n. FOLLOWUP APPOINTMENT: Followup appointment was made to be seen in Dr. Umanzor 's office on 02/11/19, at 3:30 p.m. ACTIVITY RESTRICTION: Please see attached sheet. She was allowed to shower, but no driving and was allowed to walk stairs. DIET: Regular diet. HISTORY OF PRESENT ILLNESS: Ms. Reanna West is a 63-year-old woman with Parkinson disease who presented to the emergency room with 24 hours of abdominal pain, worsening in the right lower quadrant. She was noted to have a normal white blood cell count, but a low-grade fever. She underwent a CT scan of the abdomen and pelvis which showed findings consistent with acute appendicitis and surgical consultation was obtained. HOSPITAL COURSE: The patient was seen in surgical consultation in the emergency room after review of her history, physical exam, and workup including a CT scan. It was felt that she had acute appendicitis and recommended that she undergo a laparoscopic appendectomy. She was taken to the operating room later that morning, where acute gangrenous appendicitis with purulent peritonitis without evidence of abscess was found. She underwent a laparoscopic appendectomy and tolerated this well and was admitted to the surgical floor postoperatively. She was maintained on IV Zosyn postoperatively. She developed copious amounts of diarrhea since she had been on antibiotics in the last month for urinary tract infection. C. diff. toxin was sent and this was unremarkable. Formal stool cultures were not obtained. The diarrhea was felt secondary to the antibiotics. Her white blood cell count normalized after several days and she was completely afebrile by postoperative day #3. Her diet was advanced as tolerated. She has complained of no abdominal pain or nausea or vomiting. On postoperative day #6, she was discharged home with requirements for no further antibiotics and she was recommended that she get probiotics to her regular diet. Followup appointment was made. [id number]/[facility] #: [id number] [place]
== END 2019-02-02 13:00 | disposition home health service (06) | DRG 343 ==
LOC: ED 06:36 → OR 11:21 → SSU 15:20 → OBSVTOIN 01-28 16:00
PROVIDERS: ADMIT Surgery; ATTEND Surgery
PROC: 0DTJ4ZZ Resection of Appendix, Percutaneous Endoscopic Approach (ICD-10-PCS; principal; 2019-01-27 13:00)
DX: K35.31 Acute appendicitis with localized peritonitis and gangrene, without perforation (principal); G20 Parkinson's disease; I10 Essential (primary) hypertension; R19.7 Diarrhea, unspecified; M51.16 Intervertebral disc disorders with radiculopathy, lumbar region; M19.90 Unspecified osteoarthritis, unspecified site; K57.90 Diverticulosis of intestine, part unspecified, without perforation or abscess without bleeding; Z85.828 Personal history of other malignant neoplasm of skin; Z79.899 Other long term (current) drug therapy
CPT/HCPCS: 36415; 74177; 80048; 80053; 81003; 81015; 83605; 83690; 85025; 85027; 86140; 87493; 88304; 99284; A9270-GY; C1776; G0378; J0330; J0692; J1100; J1644; J1885; J2405; J2543; J2704; J3010; J3480; Q9967

== ENCOUNTER 2023-01-09 08:16 | Inpatient (IN) ==
[2023-01-09] MEDS: Carbidopa/Levodop 25/100 MG TAB PO SCH ×5 (10:55→18:21)
[2023-01-09 11:55] LABS: ABS Lymphocytes 0.8 10^3/uL (1.0-4.8); ABS Monocytes 0.6 10^3/uL (0.0-0.9); ABS Neutrophils 11.5 10^3/uL (1.5-7.6); Eosinophil % 0.3 %; Hematocrit 39.1 % (35-45); Hemoglobin 13.3 g/dL (11.5-14.3); Lymphocyte % 6.3 %; Mean Corpuscular Hemoglobin 30.8 pg (27-33); Mean Corpuscular Volume 90.6 fL (80-97); Mean Platelet Volume 6.7 fL (7.5-11.2); Platelet Count 298 10^3/uL (150-450); Red Blood Count 4.31 10^6/uL (3.63-4.92)
[2023-01-09] MEDS ORDERED: Enoxaparin 40 MG/0.4 ML SYR SUBCUT SCH (12:00)
[2023-01-09 12:30] LABS: Albumin 3.7 g/dL (3.2-5.2); Albumin/Globulin Ratio 1.5 (1-3); Calcium 8.9 mg/dL (8.6-10.3); Creatinine, Serum 0.55 mg/dL (0.51-0.95); Globulin 2.4 g/dL (2-4); Potassium 3.8 mmol/L (3.5-5.0); Total Bilirubin 0.4 mg/dL (0.2-1.0); Total Protein 6.1 g/dL (6.4-8.9); eGFR CKD-EPI 99.2 (>60)
[2023-01-09] MEDS: Lactated Ringers 1000 ml BAG 1,000 ML IV SCH (13:49)
[2023-01-09] MEDS: oxyCODONE SR 10 mg TAB PO SCH (21:42)
[2023-01-10] MEDS: oxyCODONE SR 10 mg TAB PO SCH ×3 (05:53→22:44)
[2023-01-10] MEDS: Carbidopa/Levodop 25/100 MG TAB PO SCH ×4 (05:56→22:44)
[2023-01-10 07:08] LABS: ABS Basophils 0.1 10^3/uL (0.0-0.1); ABS Eosinophils 0.1 10^3/uL (0.0-0.5); ABS Lymphocytes 1.2 10^3/uL (1.0-4.8); ABS Monocytes 0.5 10^3/uL (0.0-0.9); ABS Neutrophils 6.9 10^3/uL (1.5-7.6); Eosinophil % 0.8 %; Hematocrit 36.1 % (35-45); Hemoglobin 12.5 g/dL (11.5-14.3); Lymphocyte % 13.3 %; Mean Corpuscular Hemoglobin 31.7 pg (27-33); Mean Corpuscular Hgb Conc 34.5 g/dL (31-36); Mean Platelet Volume 6.5 fL (7.5-11.2); Platelet Count 229 10^3/uL (150-450); Red Blood Count 3.93 10^6/uL (3.63-4.92); Red Cell Distribution Width 12.7 % (12-17); White Blood Count 8.7 10^3/uL (3.8-11.8)
[2023-01-10] MEDS: CMCS: Rasagiline 1 mg TAB (NF) PO SCH (08:20)
[2023-01-10] MEDS: Lactated Ringers 1000 ml BAG 1,000 ML IV SCH ×2 (08:28→23:32)
[2023-01-10] MEDS ORDERED: ceFAZolin 2 GM in NS PREMIX 2 GM/100 ML BAG IVPB ONE (14:36)
[2023-01-10] MEDS ORDERED: Midazolam 2 mg/2 ml VIAL 1 mg/ml 2 ml VIAL (2 mg) ONE (16:24)
[2023-01-10] MEDS ORDERED: fentaNYL 100 mcg/2 ml 50 MCG/ML VIAL ONE ×2 (16:24→18:16)
[2023-01-10] MEDS ORDERED: Dexamethasone IV 4 MG/ML VIAL 1 ml VIAL ONE (16:24)
[2023-01-10] MEDS ORDERED: Ondansetron 4 mg VIAL 2 MG/ML 2 ml VIAL ONE (16:24)
[2023-01-10] MEDS ORDERED: Propofol 10 MG/ML 20 ML BTL ONE (16:24)
[2023-01-10] MEDS ORDERED: Lidocaine 2% PF 5 ML VIAL ONE (16:25)
[2023-01-10] MEDS ORDERED: Phenylephrine IV 10 MG/ML 1 ml VIAL ONE (16:25)
[2023-01-10] MEDS ORDERED: Ropivacaine 0.2% 2 MG/ML VIAL ONE (16:52)
[2023-01-10] MEDS ORDERED: ROPIVACAINE 5 MG/ML 30 ML BTL (0.5%) ONE (17:00)
[2023-01-10] MEDS ORDERED: Rocuronium 50 mg VIAL 10 mg/ml 5 ml VIAL (50 mg) ONE (17:38)
[2023-01-10] MEDS ORDERED: Esmolol 10 MG/ML 10 ML (100 mg) IV ONE (18:56)
[2023-01-10] MEDS ORDERED: Acetaminophen IV 1 GM/100ML 1,000 MG/100 ML BAG IV ONE (19:08)
[2023-01-10] MEDS ORDERED: Ondansetron 4 mg VIAL 2 MG/ML 2 ml VIAL IV PRN (19:55)
[2023-01-10] MEDS ORDERED: HYDROmorphone 1 MG/1 ML SYRINGE IV PRN (19:55)
[2023-01-10] MEDS ORDERED: Naloxone 0.4 mg VIAL 0.4 mg/ml 1 ml VIAL IV PRN (19:55)
[2023-01-10] MEDS ORDERED: fentaNYL 100 mcg/2 ml 50 MCG/ML VIAL IV PRN (19:55)
[2023-01-11] MEDS: ceFAZolin 1 GM X 3 DOSES POST-OP Q8H (AddVan) IVPB SCH ×3 (04:34→21:35)
[2023-01-11] MEDS: Carbidopa/Levodop 25/100 MG TAB PO SCH ×4 (05:49→19:18)
[2023-01-11] MEDS ORDERED: oxyCODONE SR 10 mg TAB PO PRN (06:01)
[2023-01-11] MEDS: Enoxaparin 40 MG/0.4 ML SYR SUBCUT SCH (06:22)
[2023-01-11] MEDS ORDERED: Morphine 2 MG/ML SYRINGE IV PRN (07:00)
[2023-01-11] MEDS: oxyCODONE SR 10 mg TAB PO SCH (07:52)
[2023-01-11] MEDS: CMCS: Rasagiline 1 mg TAB (NF) PO SCH (12:36)
[2023-01-11] MEDS: Lactated Ringers 1000 ml BAG 1,000 ML IV SCH (12:44)
[2023-01-12] MEDS: CARBIDOPA LEVODOPA PO SCH ×5 (00:55→17:56)
[2023-01-12] MEDS: Lactated Ringers 1000 ml BAG 1,000 ML IV SCH (02:09)
[2023-01-12] MEDS: Enoxaparin 40 MG/0.4 ML SYR SUBCUT SCH (05:55)
[2023-01-12] MEDS ORDERED: Senna TAB 8.6 mg TAB PO PRN (08:07)
[2023-01-12] MEDS: CMCS:Rasagiline 1 mg TAB (NF) PO SCH (08:43)
[2023-01-13] MEDS: CARBIDOPA LEVODOPA PO SCH ×5 (00:59→19:03)
[2023-01-13] MEDS: Enoxaparin 40 MG/0.4 ML SYR SUBCUT SCH (06:19)
[2023-01-13] MEDS: CMCS:Rasagiline 1 mg TAB (NF) PO SCH (09:19)
[2023-01-14] MEDS: CARBIDOPA LEVODOPA PO SCH ×5 (01:05→17:53)
[2023-01-14] MEDS: Enoxaparin 40 MG/0.4 ML SYR SUBCUT SCH (05:46)
[2023-01-14] MEDS: CMCS:Rasagiline 1 mg TAB (NF) PO SCH (07:41)
[2023-01-15] MEDS: CARBIDOPA LEVODOPA PO SCH ×5 (01:02→18:16)
[2023-01-15] MEDS: Enoxaparin 40 MG/0.4 ML SYR SUBCUT SCH (05:35)
[2023-01-15 06:21] LABS: Hematocrit 28.3 % (35-45); Hemoglobin 10.2 g/dL (11.5-14.3); Mean Platelet Volume 6.8 fL (7.5-11.2); Platelet Count 281 10^3/uL (150-450)
[2023-01-15 06:40] LABS: Calcium 8.4 mg/dL (8.6-10.3); Creatinine, Serum 0.45 mg/dL (0.51-0.95); Potassium 3.7 mmol/L (3.5-5.0); eGFR CKD-EPI 104.1 (>60)
[2023-01-15] MEDS: CMCS:Rasagiline 1 mg TAB (NF) PO SCH (09:08)
[2023-01-16] MEDS: CARBIDOPA LEVODOPA PO SCH ×5 (00:53→18:12)
[2023-01-16] MEDS: Enoxaparin 40 MG/0.4 ML SYR SUBCUT SCH (05:51)
[2023-01-16] MEDS: CMCS:Rasagiline 1 mg TAB (NF) PO SCH (09:04)
[2023-01-16 15:50] LABS: Rapid COVID-19 Molecular Undetected (Undetected)
[2023-01-17] MEDS: CARBIDOPA LEVODOPA PO SCH ×3 (00:23→10:10)
[2023-01-17] MEDS: Enoxaparin 40 MG/0.4 ML SYR SUBCUT SCH (05:33)
[2023-01-17] MEDS: CMCS:Rasagiline 1 mg TAB (NF) PO SCH (08:29)
[2023-01-17 10:26] VITALS: BP 112/68
== END 2023-01-17 12:17 | disposition swing bed (61) | DRG 522 ==
LOC: ED 08:16 → EDHOLD 10:46 → SUATTDRO 10:46 → SSU 01-10 13:12
PROVIDERS: ADMIT Internal Medicine; ATTEND Student in an Organized Health Care Education/Training Program